=== PATIENT | female | born 1985 | race Caucasian/White ===

== ENCOUNTER 2017-09-16 18:18 | Outpatient (CLI) | payer OTHER, SELFPAY ==
[2017-09-16 18:20] VITALS: BP 148/88; PULSE 100; RESP 18; TEMP 37.1; O2SAT 100
[2017-09-16 20:35] LABS: RBC Urine None Seen (0-5/HPF)
[2017-09-16 21:02] LABS: Bacteria Urine Occasional (0-1); Mucus Urine 1+ (Negative); Squamous Epithelial Cell Urine 0-1 /HPF; WBC Urine 0-1/HPF (0-5/HPF)
[2017-09-16 21:18] VITALS: BP 121/79; PULSE 69; RESP 18; TEMP 36.9; O2SAT 100
== END 2017-09-16 22:48 | disposition left against medical advice (07) ==
LOC: LAB 10-23 09:22
PROVIDERS: Family Provider Family Medicine; PCP Family Medicine; Visit Provider Internal Medicine
DX: M54.5 Low back pain (principal)
CPT/HCPCS: 81003; 81015; 81025; 99281; 99282

== ENCOUNTER → 2018-01-07 11:13 | Outpatient (CLI) | payer SELFPAY ==
--- NOTE | 2018-01-07 | DI.CT.S_ITS ---
PROCEDURE: CT CHEST WO CON INDICATIONS: SHORTNESS OF BREATH TECHNIQUE: Noncontrast 5 mm thick sections acquired from the pulmonary apices to the posterior costophrenic angles. 7 mm thick coronal and sagittal MIP reformats were then acquired. For radiation dose reduction, the following was used: automated exposure control, adjustment of mA and/or kV according to patient size. COMPARISON: None. FINDINGS: Image quality: Excellent. Lungs and pleura: No acute air space opacities. No pleural effusions or pneumothorax. Central and peripheral airways are patent and normal in caliber. Mediastinum: Heart size is normal. No pericardial effusion. No mediastinal adenopathy by size criteria. Thoracic aorta and central pulmonary arteries are normal in size. Esophagus is normal in caliber. No hiatal hernia. Bones and chest wall: No suspicious bony lesions. No vertebral body compression fractures. No axillary or supraclavicular adenopathy by size criteria. Thyroid gland appears normal where well visualized. Abdomen: Visualized upper abdominal solid organs and bowel loops appear normal in the absence of contrast. IMPRESSION: No source of shortness of breath is found. No underlying pleural effusion or pneumonia is suspected. Dictated by: Dre Calle M.D. on 01/07/2018 at 12:57 Approved by: Dre Calle M.D. on 01/07/2018 at 12:58
== END ==
PROVIDERS: PCP Family Medicine; Visit Provider Family Medicine
DX: R06.02 Shortness of breath (principal)
CPT/HCPCS: 71250

== ENCOUNTER → 2018-08-26 15:28 | Outpatient (CLI) | payer SELFPAY ==
--- NOTE | 2018-08-26 | DI.US.S_ITS ---
PROCEDURE: US ABDOMEN COMPLETE INDICATIONS: ABDOMINAL PAIN TECHNIQUE: Real-time scanning was performed of the abdominal and retroperitoneal organs, with image documentation. COMPARISON: None. FINDINGS: Liver: The liver is normal in size and demonstrates mildly increased echogenicity when compared to the right kidney. The more normal areas of echogenicity are seen within the region of the gallbladder fossa, suggesting areas of fatty sparing. Gallbladder: No cholelithiasis or evidence of gallbladder wall inflammation. Biliary ducts: Intrahepatic bile ducts are non-dilated. Extrahepatic bile duct caliber measures 4 mm. Normal is 6-7 mm or less in diameter, or 10 mm or less post-cholecystectomy. Pancreas: Visualized portions of the pancreas are sonographically normal. Spleen: Spleen is normal in size and homogeneous in echotexture. Kidneys: Kidneys are normal in size and echotexture. Right kidney measures 13.8 cm long; left kidney measures 12.7 cm long. No hydronephrosis or shadowing nephrolithiasis. No solid masses. Aorta: Visualized aorta is normal in caliber at less than 3 cm. Iliacs: Proximal common iliac arteries are normal in caliber at less than 2.5 cm. IVC: Intrahepatic inferior vena cava is patent. Miscellaneous: No free abdominal fluid. IMPRESSION: 1. No cholelithiasis or evidence of acute cholecystitis. 2. Probable mild hepatic steatosis. 3. No hydronephrosis. Dictated by: Carlos A Urias M.D. on 08/26/2018 at 15:44 Approved by: Carlos A Urias M.D. on 08/26/2018 at 15:46
== END ==
LOC: US 15:30
PROVIDERS: PCP Family Medicine; Visit Provider Family Medicine
DX: R10.9 Unspecified abdominal pain (principal)
CPT/HCPCS: 76700

== ENCOUNTER → 2019-02-15 09:10 | Outpatient (CLI) | payer SELFPAY ==
--- NOTE | 2019-02-15 09:28 | DI.CT.S_ITS ---
PROCEDURE: CT CHEST WO CON INDICATIONS: chest pain TECHNIQUE: Noncontrast 5 mm thick sections acquired from the pulmonary apices to the posterior costophrenic angles. 1 mm lung window, 5 mm thick coronal and sagittal and 7 mm axial MIP reformats were then acquired. For radiation dose reduction, the following was used: automated exposure control, adjustment of mA and/or kV according to patient size. COMPARISON: [facility], CT, CT CHEST WO CON, 01/07/2018, 11:27. FINDINGS: Image quality: Excellent. Lungs and pleura: No acute air space opacities, emphysematous, or atelectatic changes. 2 mm nodule subpleural lateral lingula is present. No other suspicious nodules. No masses. No pleural effusions or pneumothorax. Central and peripheral airways are patent and normal in caliber. Mediastinum: Residual thymic tissue persists. No new anterior mediastinal masses. Heart size is normal. No pericardial effusion. No mediastinal adenopathy by size criteria. Thoracic aorta and central pulmonary arteries are normal in size. Esophagus is normal in caliber. No hiatal hernia. Bones and chest wall: No suspicious bony lesions. No vertebral body compression fractures. No axillary or supraclavicular adenopathy by size criteria. Thyroid gland is appears mildly enlarged. Abdomen: Visualized upper abdominal solid organs and bowel loops appear normal in the absence of contrast. IMPRESSION: 1. No acute cardiopulmonary process. 2. 2 mm lingular nodule is likely of no clinical significance in a patient of this age, likely post inflammatory or infectious. No further followup is necessary. 3. Mildly enlarged thyroid gland. Clinical, and laboratory correlation, along with thyroid ultrasound is recommended. Dictated by: Moni White M.D. on 02/15/2019 at 12:04 Approved by: Moni White M.D. on 02/15/2019 at 12:12
== END ==
LOC: CT 09:15
PROVIDERS: PCP Family Medicine; Visit Provider Family Medicine
DX: R07.9 Chest pain, unspecified (principal); R91.1 Solitary pulmonary nodule; E04.9 Nontoxic goiter, unspecified
CPT/HCPCS: 71250

== ENCOUNTER → 2019-02-19 12:39 | Outpatient (CLI) | payer SELFPAY ==
--- NOTE | 2019-02-19 | DI.US.S_ITS ---
ULTRASOUND OF LEFT BREAST: 02/19/2019 CLINICAL: Palpable left breast lump by physician. Focal left breast pain. Comparison is made to exams dated: 02/19/2019 mammogram, 02/15/2019 CT, 05/26/2017 ultrasound, and 05/26/2017 mammogram - [facility]. Ultrasound of the left breast was performed on the area of interest. Gilliland scale images of the real-time examination were reviewed. IMPRESSION: NEGATIVE There is no sonographic evidence of malignancy. There is no mammographic or sonographic abnormality seen in the left breast to correspond with the pain in the upper outer quadrant, however, clinical followup is recommended. There is no mammographic or sonographic abnormality seen in the left breast to correspond with the palpable abnormality in the lower outer quadrant, however, clinical followup is recommended. Return to annual mammogram screening schedule is recommended. This exam was interpreted at Station ID: [id number]. Electronically Signed By: Azul pardo/:02/19/2019 16:51:37 letter sent: Clinical Evaluation Ultrasound BI-RADS: 1 Negative
--- NOTE | 2019-02-19 | DI.MG.S_ITS ---
BILATERAL DIGITAL DIAGNOSTIC MAMMOGRAM 3D/2D: 02/19/2019 CLINICAL: Left breast lump and pain. Comparison is made to exams dated: 05/26/2017 ultrasound, 05/26/2017 ultrasound, 05/26/2017 mammogram, and 02/15/2019 [facility]. The tissue of both breasts is predominantly fatty. No significant masses, calcifications, or other findings are seen in either breast. IMPRESSION: INCOMPLETE: NEEDS ADDITIONAL IMAGING EVALUATION There is no mammographic abnormality seen in the left breast to correspond with the pain at 6 o'clock. There is no mammographic abnormality seen in the left breast to correspond with the palpable abnormality at 2 o'clock. A targeted ultrasound of the left breast is recommended and will be performed immediately following this exam. This exam was interpreted at Station ID: [id number]. NOTE: For mammograms, a report in lay terms will be sent to the patient. Approximately 15% of breast malignancies will not be visualized mammographically. In the management of a palpable breast mass, a negative mammogram must not discourage biopsy of a clinically suspicious lesion. Electronically Signed By: Azul Nunes M.D. lk/:02/19/2019 13:31:29 ACR BI-RADS Category 0: Incomplete [id number]
== END ==
PROVIDERS: PCP Family Medicine; Visit Provider Family Medicine
DX: R92.8 Other abnormal and inconclusive findings on diagnostic imaging of breast (principal); N63.23 Unspecified lump in the left breast, lower outer quadrant; N64.4 Mastodynia
CPT/HCPCS: 76642; 77066; G0279

== ENCOUNTER → 2019-11-30 10:55 | Outpatient (CLI) | payer SELFPAY ==
--- NOTE | 2019-11-30 11:03 | DI.US.S_ITS ---
PROCEDURE: US PERIPH VENOUS LOW EXTREM RT INDICATIONS: post. knee pain, calf pain/swelling, r/o dvt/Chapa's Cyst TECHNIQUE: Real-time imaging, as well as color and pulse Doppler interrogation, were performed of the lower extremity deep veins from the inguinal ligament to the popliteal fossa. COMPARISON: None. FINDINGS: The common femoral, femoral and popliteal veins are normally compressible, and free of intraluminal thrombus. Color and pulse Doppler demonstrate normal phasic intraluminal flow. There is normal augmentation response to distal compression maneuver. IMPRESSION: No DVT found. Dictated by: Dre Calle M.D. on 11/30/2019 at 12:07 Approved by: Dre Calle M.D. on 11/30/2019 at 12:07
== END ==
PROVIDERS: PCP Family Medicine; Referring Provider Family Medicine; Visit Provider Physician Assistant
DX: M79.661 Pain in right lower leg (principal); M25.561 Pain in right knee; M79.89 Other specified soft tissue disorders
CPT/HCPCS: 93971

== ENCOUNTER 2019-12-10 14:25 | Emergency (ER) | payer SELFPAY ==
[2019-12-10 14:35] VITALS: BP 191/87; PULSE 120; RESP 22; TEMP 36.9; O2SAT 98; BMI 47.5
[2019-12-10 15:00] VITALS: BP 164/87; PULSE 103; RESP 22; O2SAT 96
--- NOTE | 2019-12-10 15:01 | ED_ITS ---
HPI - Extremity Problem General Chief complaint: Extremity Problem,Nontraumatic Stated complaint: right knee, trouble walking, pain, past month Time Seen by Provider: 12/10/19 14:33 Source: patient Mode of arrival: Ambulatory Limitations: no limitations History of Present Illness HPI Narrative: 34-year-old female here for evaluation of right knee/leg pain. Patient states the symptoms started several weeks ago. She states that 1 day she woke up and felt like her knee was vibrating and after that it has become more more uncomfortable. Approximately 10 days ago she was seen in the walk-in clinic. Was evaluate for the symptoms. An ultrasound was ordered for concern for DVT. This was subsequently negative. She was told by the walk-in clinic that of her symptoms worsen that she needed to follow-up with her primary provider. She states that over the past couple days she felt like her symptoms have been worsening she contact her primary doctor in could get into the beginning of next week so she came to the emergency department. No fevers. No specific trauma. No changes in sensation to her foot. Describes the pain as behind and below and on top of her knee. No hip pain. No ankle pain. No prior injuries. She has been taking anti-inflammatories without much improvement. Related Data Home Medications Medication Instructions Recorded Confirmed CA PANTOTHENATE/FOLIC ACID/VIT 1 tab PO QDAY #0 01/07/11 11/14/18 (MULTIVITAMIN) Previous Rx's Medication Instructions Recorded prednisone 20 mg tablet 20 mg PO DAILY #14 tab 11/14/18 diclofenac sodium 1 % topical gel 4 gram TOP QID 14 Days #450 gram 11/30/19 cyclobenzaprine 10 mg PO TID PRN #12 tab 12/10/19 Allergies Allergy/AdvReac Type Severity Reaction Status Date / Time hydrocodone Allergy Verified 12/10/19 14:35 Review of Systems Constitutional Constitutional: Denies fatigue and Denies headache(s) ENT Ears, Nose, Mouth, and Throat: Denies headache(s) and Denies disequilibrium Cardiovascular Cardiovascular: Denies chest pain and Denies dyspnea Respiratory Respiratory: Denies dyspnea Gastrointestinal Gastrointestinal: Denies abdominal pain Genitourinary Genitourinary: Denies dysuria Genitourinary: Denies dysuria Musculoskeletal Musculoskeletal: Denies tingling Comments: Right knee pain Integumentary/Breasts Skin/Breast: Denies lesions and Denies rash Neurologic Neurologic: Denies headache(s), Denies tingling and Denies disequilibrium Endocrine Endocrine: Denies fatigue Patient History Medical History Posterior right knee pain (Acute) Right calf pain (Acute) Social History Smoking Status: Never smoker Smoking Status: Never smoker alcohol intake frequency: 3 or more drinks per day Substance Use Type: does not use Exam Initial Vital Signs Initial Vital Signs: Vital Signs Temperature 98.5 F 12/10/19 14:35 Pulse Rate 120 H 12/10/19 14:35 Respiratory Rate 22 12/10/19 14:35 Blood Pressure 191/87 H 12/10/19 14:35 Pulse Oximetry 98 12/10/19 14:35 Const General: cooperative and comfortable Limitations: mental status not altered HENMT Head: normal to inspection and normocephalic Resp Effort & Inspection: normal respiratory effort Cardio Pulses: dorsalis pedis present on the right Skin Lesions: no lesions Rashes: no rashes Neuro Sensory Exam: no sensory deficits noted Extrem Other: Right hip unremarkable, right ankle unremarkable, right foot unremarkable, patient has tenderness to palpation and fullness of the right tibialis anterior and also the lateral head of the gastrocnemius. Also has tenderness over the hamstring tendons. Psych Appearance: grossly normal and well kempt Course Vital Signs Vital signs: Vital Signs - 8 hr 12/10/19 14:35 Temperature 98.5 F Pulse Rate 120 H Respiratory Rate 22 Blood Pressure 191/87 H Pulse Oximetry 98 MDM - Extremity (Nontraumatic) MDM Narrative Medical decision making narrative: Patient had a DVT ultrasound which was reviewed and showed no DVT. Her skin shows no signs of cellulitis. I have low suspicion for fracture since the symptoms been going on for several weeks now and she has no specific trauma. She does have significant muscle fullness the tibialis anterior and the lateral head of the gastrocnemius and also very tender to palpation over both of the hamstring tendons posteriorly. Unsure why she is having this muscle fullness but it is fairly evident compared to the left side. She is neurovascularly intact distal. Consider compartment syndrome however she does not fit the physical exam for this. We did discuss focal massaging these areas. We did discuss light stretching. Was sent home with muscle relaxers. She is already on anti-inflammatories. Informed her of her symptoms do not improve that she should over the primary doctor about further evaluation to in clude a potential MRI. She expressed understanding and agreement. Patient was also tachycardic and hypertensive upon arrival. She is not having chest pain or shortness of breath. Her heart rate improved to the low 100s after my exam. Her blood pressure also improved. Low suspicion for cardiopulmonary pathology. Discharge Plan Departure Patient Disposition: Home Clinical Impression: Muscle spasm of right leg Instructions: DI for Muscle Spasm Activity Restrictions/Additional Instructions: Recommend that you do the focal massaging like we discussed. Also using heat and anti-inflammatories. Use the muscle relaxers as directed. If your symptoms do not improve with these conservative treatments I do recommend you talk with your primary doctor about further evaluation to include a potential MRI. Prescriptions: New cyclobenzaprine 10 mg tablet 10 mg PO TID PRN (Reason: muscle spasm) Qty: 12 RF: 0 No Action prednisone 20 mg tablet 20 mg PO DAILY Qty: 14 RF: 0 CA PANTOTHENATE/FOLIC ACID/VIT (MULTIVITAMIN) 1 tab PO QDAY Qty: 0 RF: 0 diclofenac sodium 1 % gel 4 gram TOP QID 14 Days Qty: 450 RF: 0 Referrals: Víctor Paul MD [Primary Care Provider] -
[2019-12-10 15:17] VITALS: BP 144/84; PULSE 90; RESP 18; O2SAT 98
== END 2019-12-10 15:18 | disposition home or self-care (01) ==
PROVIDERS: Emergency Provider Emergency Medicine; PCP Family Medicine
DX: M62.831 Muscle spasm of calf (principal)
CPT/HCPCS: 99281

== ENCOUNTER → 2020-02-26 13:12 | Outpatient (CLI) | payer OTHER, SELFPAY ==
[2020-02-26 15:25] LABS: COVID19 -Nasal RAPID POSITIVE (Negative)
== END ==
PROVIDERS: PCP Family Medicine; Visit Provider Physician Assistant
DX: U07.1 COVID-19 (principal)
CPT/HCPCS: 87635

== ENCOUNTER 2020-07-16 09:52 | Emergency (ER) | payer SELFPAY ==
[2020-07-16 10:05] VITALS: BP 136/63; PULSE 87; RESP 18; TEMP 36.8; O2SAT 99; BMI 46.3
--- NOTE | 2020-07-16 10:06 | ED.LOWEXIN ---
HPI - Extremity Injury (Lower) General Chief Complaint: Extremity Injury, Lower Stated Complaint: left foot pain Time Seen by Provider: 07/16/20 10:03 Source: patient Mode of arrival: Ambulatory Limitations: no limitations History of Present Illness HPI Narrative: 35-year-old female nonsmoker with noncontributory medical history presents with a chief complaint of some left foot pain has been gradually worsening since Friday. She has been extremely busy with work, running a local restaurant and states she may have tweaked it on when she stepped on a vacuum cord with her other foot and caused her to jump up. She now has significant pain when she moves her left foot and ankle, stating that the primary source of pain is in and around her heel. She denies any radiation up into her piper, knee or hip. She denies any history of the same. She denies any numbness, tingling or weakness. MD complaint: foot injury Onset (ago): day(s) Injury: Left: ankle and foot Place: home Severity: moderate Relieving factors: rest Exacerbating factors: weight bearing and movement Associated symptoms: able to partially bear weight Other symptoms: none Related Data Home Medications Medication Instructions Recorded Confirmed CA PANTOTHENATE/FOLIC ACID/VIT 1 tab PO QDAY #0 01/07/11 11/14/18 (MULTIVITAMIN) Previous Rx's Medication Instructions Recorded prednisone 20 mg tablet 20 mg PO DAILY #14 tab 11/14/18 cyclobenzaprine 10 mg PO TID PRN #12 tab 12/10/19 ketorolac 10 mg PO Q6H PRN #20 tab 07/16/20 Allergies Allergy/AdvReac Type Severity Reaction Status Date / Time hydrocodone Allergy Verified 12/10/19 14:35 Review of Systems Constitutional Constitutional: Denies chills and Denies fever(s) Cardiovascular Cardiovascular: Denies chest pain and Denies dyspnea Respiratory Respiratory: Denies dyspnea Musculoskeletal Musculoskeletal: Reports abnormal gait and Reports arthralgias Neurologic Neurologic: Reports abnormal gait Patient History Medical History (Updated 07/16/20 @ 10:54 by Bret Aburto DO) Posterior right knee pain Right calf pain Social History Smoking Status: Never smoker Smoking Status: Never smoker alcohol intake frequency: 3 or more drinks per day Substance Use Type: does not use Exam Narrative Exam Narrative: GEN: AOx3 and in mild distress EYES: Pupils are equal, round, and reactive to light and accommodation. Extraoccular muscles are intact bilaterally. There is no subconjunctival hemorrhage or exudate. CHEST: Lungs are clear to auscultation bilaterally and free of wheezes, rales, or rhonchi. Heart rate is regular rhythm, there are no murmurs, clicks, rubs, or gallops. There is no chest wall tenderness. ABD: Abdomen is soft and nontender. There is no guarding or rebound. Bowel sounds are normal in all 4 quadrants. There is no mass or organomegaly. EXT: No obvious deformity of left foot and ankle, no swelling or erythema, no tenderness on bony prominences. Good color, cap refill and sensation intact. Patient does have provocation of pain with active range of motion of toes and dorsiflexion of the ankle, pain settles in the posterior foot. There is no pain on palpation of Achilles, calf squeeze results in plantar flexion SKIN: Warm, pink, and dry. No erythema or rash Initial Vital Signs Initial Vital Signs: Vital Signs Temperature 98.2 F 07/16/20 10:05 Pulse Rate 87 07/16/20 10:05 Respiratory Rate 18 07/16/20 10:05 Blood Pressure 136/63 07/16/20 10:05 Pulse Oximetry 99 07/16/20 10:05 Course Orders Ordered: ED Orders 07/16/20 10:09 XR foot LT min 3V Stat Vital Signs Vital signs: Vital Signs - 8 hr 07/16/20 10:05 Temperature 98.2 F Pulse Rate 87 Respiratory Rate 18 Blood Pressure 136/63 Pulse Oximetry 99 MDM - Extremity Injury (Lower) Imaging Data Extremity x-ray #1: Radiologist's Impression: [address] [id number] ReportSigned Patient: Katherine Medellin [facility]#: [id number]: 1985Acct:[id number]/Sex: 35 / FDate of Service: 07/16/20Loc: EDAccession Number: [id number] Procedure: XR foot LT min 3V Ordering Provider: Bret Aburto D.O. PROCEDURE: XR FOOT LT MIN 3V INDICATIONS: foot pain, no obvious injury TECHNIQUE: 3 views of the foot were acquired. COMPARISON: [facility], , FOOT 2V LEFT, 05/29/2016, 12:15. FINDINGS: Bones: No fractures or dislocations. No suspicious bony lesions. Soft tissues: No tibiotalar joint effusion. Achilles tendon appears normal. Large plantar fascial insertional enthesophyte at the calcaneus. IMPRESSION: No acute osseous abnormality. Large plantar calcaneal enthesophyte. Dictated by: Stuart Daily D.O. on 07/16/2020 at 9:33 MDM Narrative Medical decision making narrative: Patient with ongoing foot and ankle pain since a possible injury on or Friday. No obvious deformity, is closed, isolated and neurovascularly intact. Achilles injury considered but thought unlikely as there is no pain at the distribution of the Achilles and she has plantar flexion with calf squeeze. Bony injury unlikely given exam, lack of reproducible pain on palpation and normal x-ray. My suspicion is of an underlying ligamentous or other soft tissue injury as evidence by her increased pain with active range of motion. Patient is splinted, return precautions given and questions answered to her apparent satisfaction Discharge Plan Departure Patient Disposition: Home Clinical Impression: Left foot pain Instructions: DI for Foot Pain Activity Restrictions/Additional Instructions: *You have been diagnosed with [left foot pain, no evidence of fracture or dislocation x-ray, low suspicion of Achilles tendon injury based on physical exam.] *What to do: *Please continue to take your regular medications as directed. [ x] New medication prescriptions sent to your pharmacy: [[facility] in [place] ] [ ] New medication written as a paper prescription [ ] No new medications given *Please follow up with your primary care provider in 2-3 days, call for an appointment. Let them know you were seen in the Emergency Department and that we ask that you be seen in follow up. We will electronically transmit a record of today's note if your PCP is in our system *If you do not have a primary care provider please contact the [facility] Resource line at [phone]. They will ask some questions about your medical history and help get you set up with a doctor in the community. *Return to Emergency Department if you should have any new, worsening or concerning symptoms, such as [fever greater than 101 F, shaking chills, worsening pain, persistent vomiting or other bothersome symptoms] Prescriptions: New ketorolac 10 mg tablet 10 mg PO Q6H PRN (Reason: pain) Qty: 20 RF: 0 No Action prednisone 20 mg tablet 20 mg PO DAILY Qty: 14 RF: 0 CA PANTOTHENATE/FOLIC ACID/VIT (MULTIVITAMIN) 1 tab PO QDAY Qty: 0 RF: 0 cyclobenzaprine 10 mg tablet 10 mg PO TID PRN (Reason: muscle spasm) Qty: 12 RF: 0 Referrals: Víctor Paul MD [Primary Care Provider] -
--- NOTE | 2020-07-16 10:09 | DI.RAD.S_ITS ---
PROCEDURE: XR FOOT LT MIN 3V INDICATIONS: foot pain, no obvious injury TECHNIQUE: 3 views of the foot were acquired. COMPARISON: [facility], , FOOT 2V LEFT, 05/29/2016, 12:15. FINDINGS: Bones: No fractures or dislocations. No suspicious bony lesions. Soft tissues: No tibiotalar joint effusion. Achilles tendon appears normal. Large plantar fascial insertional enthesophyte at the calcaneus. IMPRESSION: No acute osseous abnormality. Large plantar calcaneal enthesophyte. Dictated by: Stuart Daily D.O. on 07/16/2020 at 9:33 Approved by: Stuart Daily D.O. on 07/16/2020 at 9:54
== END 2020-07-16 11:08 | disposition home or self-care (01) ==
PROVIDERS: Emergency Provider Emergency Medicine; PCP Family Medicine
DX: M79.672 Pain in left foot (principal)
CPT/HCPCS: 73630; 99283

== ENCOUNTER → 2020-10-24 11:09 | Outpatient (CLI) | payer SELFPAY ==
--- NOTE | 2020-10-24 | DI.RAD.S_ITS ---
PROCEDURE: XR WRIST RT MIN 3V INDICATIONS: RIGHT WRIST PAIN TECHNIQUE: Four views of the wrist were acquired. COMPARISON: None. FINDINGS: Bones: No fractures or dislocations. Moderate osteoarthritic changes at the 1st CMC and triscaphe joints. No suspicious bony lesions. Scaphoid view: Intact scaphoid. Normal scapholunate interval. Soft tissues: No suspicious soft tissue calcifications. IMPRESSION: No acute finding. 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 Dictated by: Philip Morales M.D. on 10/24/2020 at 14:26 Approved by: Philip Morales M.D. on 10/24/2020 at 14:27
== END ==
PROVIDERS: PCP Family Medicine; Referring Provider Physician Assistant; Visit Provider Physician Assistant
DX: M25.531 Pain in right wrist (principal); M18.11 Unilateral primary osteoarthritis of first carpometacarpal joint, right hand; M19.031 Primary osteoarthritis, right wrist
CPT/HCPCS: 73110

== ENCOUNTER 2020-11-27 14:31 | Emergency (ER) | payer SELFPAY ==
[2020-11-27] VITALS (7 sets, daily range): BP systolic 139–160; BP diastolic 66–86; PULSE 95–122; RESP 18; TEMP 37.4; O2SAT 97–100
--- NOTE | 2020-11-27 14:50 | DI.CT.S_ITS ---
PROCEDURE: CT ABDOMEN PELVIS W CON INDICATIONS: LLQ pain TECHNIQUE: After the administration of intravenous contrast, axial sections acquired from the lung bases to the pubic symphysis. Coronal and sagittal reformats were performed. For radiation dose reduction, the following was used: automated exposure control, adjustment of mA and/or kV according to patient size. COMPARISON: None. FINDINGS: Image quality: Excellent. Lung bases: Unremarkable. Heart: No significant findings. ABDOMEN: Liver: Mild, diffuse fatty infiltration of the liver. Gallbladder: Unremarkable. Biliary ducts: Unremarkable. Pancreas: Unremarkable. Spleen: Unremarkable. Adrenal Glands: Unremarkable. Kidneys and Ureters: Unremarkable. Stomach and Bowel: Stomach, small bowel loops, and colon are unremarkable. The appendix is normal. Peritoneum: No abnormal intraperitoneal fluid. No free air. Ventral Wall: No hernias. Abdominal Nodes: No retroperitoneal or mesenteric adenopathy by size criteria. Vessels: Aorta and inferior vena cava are normal in size. PELVIS: Pelvic Organs: Unremarkable. Bladder: Unremarkable. Pelvic Nodes: No enlarged lymph nodes. Miscellaneous: No hernias are seen. Bones: Spine degenerative disc disease and facet arthropathy. Grade 1 L5-S1 isthmic spondylolisthesis. IMPRESSION: 1. No acute disease process. 2. Appendix is normal. 3. No free fluid or free air. 4. No dilated loops of bowel. Dictated by: Geovanna Apodaca MD, PhD on 11/27/2020 at 15:54 Approved by: Geovanna Apodaca MD, PhD on 11/27/2020 at 15:58
[2020-11-27 14:52] LABS: Appearance Urine UA CLEAR; Bilirubin Urine UA NEGATIVE (NEGATIVE); Color Urine UA YELLOW; Glucose Urine UA NEGATIVE (Negative); Ketones Urine UA NEGATIVE (NEGATIVE); Leukocyte Esterase Urine UA NEGATIVE (NEGATIVE); Nitrite Urine UA NEGATIVE (Negative); Occult Blood Urine UA NEGATIVE (Negative); Protein Urine UA NEGATIVE (Negative); Specific Gravity Urine UA 1.025 (1.000-1.035); Urobilinogen Urine UA 0.2 E.U./dL (0.2)
--- NOTE | 2020-11-27 14:52 | ED_ITS ---
HPI - Abdominal Pain <Stevie Haynes PA-C - Last Filed: 11/27/20 17:01> General Chief Complaint: Abdominal Pain Stated Complaint: Bad abd pain. Thinks ovarian cyst Time Seen by Provider: 11/27/20 14:36 Source: patient Mode of arrival: Ambulatory History of Present Illness HPI narrative: 35-year-old female with no reported past medical history presents to the ED with 1 day of left lower quadrant pain. Patient states that the pain started suddenly 2 hours prior to arrival, 8/10 during the worst pain. Pain is aggravated by movement, sitting up. Patient is on Depo-Provera, LMP 6 months ago. Patient denies history ectopic , ovarian cysts. Patient denies fever, chills, chest pain, shortness of breath, cough, nausea, vomiting, dysuria, flank pain, lightheadedness, dizziness, syncope. Patient denies h istory of abdominal surgeries, kidney stones. Related Data Home Medications Medication Instructions Recorded Confirmed CA PANTOTHENATE/FOLIC ACID/VIT 1 tab PO QDAY #0 01/07/11 10/24/20 (MULTIVITAMIN) Previous Rx's Medication Instructions Recorded prednisone 20 mg tablet 20 mg PO DAILY #14 tab 11/14/18 cyclobenzaprine 10 mg tablet 10 mg PO TID PRN #12 tab 12/10/19 ketorolac 10 mg tablet 10 mg PO Q6H PRN #20 tab 07/16/20 Allergies Allergy/AdvReac Type Severity Reaction Status Date / Time hydrocodone Allergy Verified 11/27/20 14:43 Review of Systems <Stevie Haynes PA-C - Last Filed: 11/27/20 17:01> Constitutional Constitutional: Denies chills, Denies fatigue, Denies fever(s), Denies frequent falls, Denies lethargy and Denies weakness Eyes Eyes: Denies change in vision, Denies eye discharge, Denies irritation and Denies loss of vision ENT Ears, Nose, Mouth, and Throat: Denies change in voice, Denies dizziness, Denies neck pain, Denies sore throat and Denies throat swelling Cardiovascular Cardiovascular: Denies chest pain, Denies irregular heart rhythm, Denies lightheadedness, Denies palpitations, Denies dyspnea, Denies dyspnea on exertion and Denies orthopnea Respiratory Respiratory: Denies cough, Denies dyspnea, Denies dyspnea on exertion and Denies wheezing Gastrointestinal Gastrointestinal: Reports abdominal pain, Denies change in bowel habits, Denies diarrhea, Denies nausea and Denies vomiting Musculoskeletal Musculoskeletal: Denies neck pain and Denies numbness Integumentary/Breasts Skin/Breast: Denies pruritus, Denies erythema, Denies rash and Denies wounds Neurologic Neurologic: Denies behavioral changes, Denies confusion, Denies dizziness, Denies frequent falls, Denies loss of vision, Denies numbness and Denies weakness Psychiatric Psychiatric: Denies anxiety, Denies behavioral changes, Denies confusion, Denies depression, Denies homicidal ideation and Denies suicidal ideation Endocrine Endocrine: Denies fatigue, Denies flushing and Denies palpitations Hematologic/Lymphatic Hematologic/Lymphatic: Denies easy bruising Allergic/Immunologic Allergic/Immunologic: Denies urticaria, Denies throat swelling and Denies wheezing Patient History <Stevie Haynes PA-C - Last Filed: 11/27/20 17:01> Medical History (Updated 11/27/20 @ 16:40 by Stevie Haynes PA-C) Posterior right knee pain Right calf pain Social History Smoking Status: Never smoker Smoking Status: Never smoker alcohol intake frequency: 3 or more drinks per day Substance Use Type: does not use Exam <Stevie Haynes PA-C - Last Filed: 11/27/20 17:01> Initial Vital Signs Initial Vital Signs: Vital Signs Pulse Rate 122 H 11/27/20 14:39 Pulse Oximetry 99 11/27/20 14:39 Const General: cooperative HENHI Head: normocephalic and atraumatic Ears: external ears normal and TM's normal bilaterally Nose: external nose normal and No nasal discharge Face and sinus: sinuses nontender, face symmetric, no sinus tenderness and No dry mucous membranes Mouth: oral mucosae normal and moist mucous membranes Teeth and gingiva: dentition normal Throat: tonsils normal and uvula midline Eyes General: appearance normal, both eyes and all related structures Eyelids: eyelids normal Conjunctivae: conjunctivae normal Sclera: sclerae normal Pupils: PERRL EOM: EOM intact bilaterally Neck Neck: normal visual inspection, trachea midline, No lymphadenopathy, No midline deformity and No JVD Lymphatic: No lymphedema Chest Chest: normal inspection of the chest Resp Effort & Inspection: normal respiratory effort, able to speak in complete sentences, no respiratory distress and no use of accessory muscles Auscultation: clear to auscultation bilaterally, no rales, no rhonchi and no wheezes Cardio Rate: regular rate Rhythm: regular rhythm Heart Sounds: no click, no gallops, no murmurs and no rubs Pulses: normal peripheral pulses GI Inspection: non-distended Palpation: soft, no hepatosplenomegaly, No guarding, No pulsatile mass and No tender Auscultation: normal bowel sounds Other: Abdomen is soft, nondistended. Tenderness to palpation on left lower quadrant. No guarding, rebound. No CVA tenderness. Back/Spine/Pelvis Back: No CVA tenderness Cervical Spine: cervical ROM normal and No pain with cervical ROM Thoracic/Lumbar Spine: thoracic and lumbar spine normal to inspection Skin General: no rashes or lesions noted, No jaundice and No petechiae Neuro General: patient alert, patient oriented x3, gait normal and no focal motor deficits Speech: speech normal Extrem General: full ROM, no clubbing, cyanosis or edema, no pedal edema and no calf tenderness Psych Appearance: well kempt Mental Status: mental status grossly normal Attitude: cooperative Thought Content: normal and suicidality Judgment: judgment good <Bret Aburto DO - Last Filed: 11/28/20 06:58> Initial Vital Signs Initial Vital Signs: Vital Signs Pulse Rate 122 H 11/27/20 14:39 Pulse Oximetry 99 11/27/20 14:39 Course <Stevie Haynes PA-C - Last Filed: 11/27/20 17:01> Course Course Narrative: Patient's pain improved with ketorolac. CT, ultrasound, labs negative for acute findings. Pain likely caused by musculoskeletal etiology. Will discharge patient with ED return precautions. Orders Ordered: Discontinued Medications Ketorolac Tromethamine (Ketorolac 30 Mg/Ml Vial) 15 mg IV NOW ONE Stop: 11/27/20 14:51 Last Admin: 11/27/20 15:13 Dose: 15 mg Documented by: MOHSEN Vital Signs Vital signs: Vital Signs - 8 hr 11/27/20 14:39 11/27/20 14:40 11/27/20 14:41 Temperature 99.3 F Pulse Rate 122 H 109 H 121 H Respiratory Rate 18 Blood Pressure 160/86 H 160/86 H Pulse Oximetry 99 98 99 11/27/20 15:00 11/27/20 15:30 Temperature Pulse Rate 104 H 97 H Respiratory Rate Blood Pressure 154/71 H 147/70 H Pulse Oximetry 100 99 <Bret Aburto DO - Last Filed: 11/28/20 06:58> Orders Ordered: Discontinued Medications Ketorolac Tromethamine (Ketorolac 30 Mg/Ml Vial) 15 mg IV NOW ONE Stop: 11/27/20 14:51 Last Admin: 11/27/20 15:13 Dose: 15 mg Documented by: MOHSEN Vital Signs Vital signs: Vital Signs - 8 hr 11/27/20 14:39 11/27/20 14:40 11/27/20 14:41 Temperature 99.3 F Pulse Rate 122 H 109 H 121 H Respiratory Rate 18 Blood Pressure 160/86 H 160/86 H Pulse Oximetry 99 98 99 11/27/20 15:00 11/27/20 15:30 Temperature Pulse Rate 104 H 97 H Respiratory Rate Blood Pressure 154/71 H 147/70 H Pulse Oximetry 100 99 MDM - Abdominal Pain <Stevie Haynes PA-C - Last Filed: 11/27/20 17:01> Lab Data Lab results narrative: Labs WNL Result diagrams: 11/27/20 14:35 11/27/20 14:35 Labs: Lab Results 11/27/20 11/27/20 11/27/20 Range/Units 14:35 14:35 14:35 WBC 10.8 (4.5-11.0) X10^3/uL RBC 4.86 (4.0-5.2) X10^6/uL Hgb 14.6 (12.0-16.0) g/dL Hct 43.8 (36-46) % MCV 90.2 (80-100) fL MCH 30.0 (26-34) PG MCHC 33.3 (30-36) % RDW 13.8 (11.6-14.8) % Plt Count 260 (150-400) X10^3/uL Neut % (Auto) 64.7 (50-75) % Lymph % (Auto) 25.2 (25-40) % Price % (Auto) 8.2 (3-14) % Eos % (Auto) 1.0 L (2-4) % Baso % (Auto) 0.9 (0-2) % Neut # (Auto) 7000 (6575-0401) /uL Lymph # (Auto) 2700 (7784-5095) /uL Price # (Auto) 900 (0-900) /uL Eos # (Auto) 100 (0-450) /uL Baso # (Auto) 100 (0-100) /uL Sodium (137-145) mmol/L Potassium (3.4-5.1) mmol/L Chloride (98-107) mmol/L Carbon Dioxide (22-32) mmol/L BUN (7-17) mg/dL Creatinine (0.52-1.04) mg/dL Estimated GFR (>60) mL/min BUN/Creatinine Ratio (6-22) Glucose (70-100) mg/dL Lactate (0.7-2.1) mmol/L Calcium (8.4-10.2) mg/dL Total Bilirubin (0.2-1.3) mg/dL AST (14-36) IU/L ALT (<35) IU/L Alkaline Phosphatase (38-126) U/L Total Protein (6.3-8.2) g/dL Albumin (3.5-5.0) g/dL Globulin (1.7-4.1) g/dL Albumin/Globulin Ratio (1.0-2.8) Lipase (23-300) U/L Urine Color Yellow Urine Appearance Clear Urine pH 5.0 (4.5-8.0) Ur Specific [place] 1.025 (1.000-1.035) Urine Protein Negative (Negative) Urine Glucose (UA) Negative (Negative) g/dL Urine Ketones Negative (NEGATIVE) Urine Occult Blood Negative (Negative) Urine Nitrate Negative (Negative) Urine Bilirubin Negative (NEGATIVE) Urine Urobilinogen 0.2 (0.2) E.U./dL Ur Leukocyte Esterase Negative (NEGATIVE) Urine RBC None seen (0-5/HPF) Urine WBC None seen (0-5/HPF) Urine Bacteria None seen (None) Ur Culture Indicated? Cult not indicated Urine Test Negative (Negative) 11/27/20 11/27/20 Range/Units 14:35 14:35 WBC (4.5-11.0) X10^3/uL RBC (4.0-5.2) X10^6/uL Hgb (12.0-16.0) g/dL Hct (36-46) % MCV (80-100) fL MCH (26-34) PG MCHC (30-36) % RDW (11.6-14.8) % Plt Count (150-400) X10^3/uL Neut % (Auto) (50-75) % Lymph % (Auto) (25-40) % Price % (Auto) (3-14) % Eos % (Auto) (2-4) % Baso % (Auto) (0-2) % Neut # (Auto) (4151-3053) /uL Lymph # (Auto) (5388-3557) /uL Price # (Auto) (0-900) /uL Eos # (Auto) (0-450) /uL Baso # (Auto) (0-100) /uL Sodium 141 (137-145) mmol/L Potassium 3.8 (3.4-5.1) mmol/L Chloride 107 (98-107) mmol/L Carbon Dioxide 26 (22-32) mmol/L BUN 11 (7-17) mg/dL Creatinine 0.49 L (0.52-1.04) mg/dL Estimated GFR > 60.0 (>60) mL/min BUN/Creatinine Ratio 22.4 H (6-22) Glucose 87 (70-100) mg/dL Lactate 1.2 (0.7-2.1) mmol/L Calcium 9.1 (8.4-10.2) mg/dL Total Bilirubin 0.6 (0.2-1.3) mg/dL AST 29 (14-36) IU/L ALT 31 (<35) IU/L Alkaline Phosphatase 92 (38-126) U/L Total Protein 8.0 (6.3-8.2) g/dL Albumin 4.6 (3.5-5.0) g/dL Globulin 3.4 (1.7-4.1) g/dL Albumin/Globulin Ratio 1.4 (1.0-2.8) Lipase 58 (23-300) U/L Urine Color Urine Appearance Urine pH (4.5-8.0) Ur Specific [place] (1.000-1.035) Urine Protein (Negative) Urine Glucose (UA) (Negative) g/dL Urine Ketones (NEGATIVE) Urine Occult Blood (Negative) Urine Nitrate (Negative) Urine Bilirubin (NEGATIVE) Urine Urobilinogen (0.2) E.U./dL Ur Leukocyte Esterase (NEGATIVE) Urine RBC (0-5/HPF) Urine WBC (0-5/HPF) Urine Bacteria (None) Ur Culture Indicated? Urine Test (Negative) Imaging Data US - CARTRIDGE LOADER: Radiologist's Impression: PROCEDURE:? US PELVIC COMPLETE ? INDICATIONS:? LEFT PELVIC PAIN ? TECHNIQUE:? Real-time scanning was performed of the pelvic organs, with image documentation.? Additional endovaginal scanning was necessary due to incomplete visualization of the adnexal and endometrial structures by transabdominal scanning.? ? COMPARISON:? None. ? FINDINGS:? ?? Uterus:? Uterus is normal in size at 6.2 x 3.3 x 4.4 cm.? The endometrium measures 5.7 mm in combined thickness.? ? Ovaries:? Right ovary measures 1.8 x 1.6 x 2.8 cm. Left ovary measures 2.7 x 1.9 x 1.5 cm. ? Other: ? No pathologic free abdominal or pelvic fluid. ? IMPRESSION:? Unremarkable exam. ? Dictated by: Delmy Robles M.D. on 11/27/2020 at 16:07 ? ? Approved by: Delmy Robles M.D. on 11/27/2020 at 16:07 ? CT scan - abdomen/pelvis: Radiologist's Impression: PROCEDURE:? CT ABDOMEN PELVIS W CON ? INDICATIONS:? LLQ pain ? TECHNIQUE:? After the administration of intravenous contrast, axial sections acquired from the lung bases to the pubic symphysis.? Coronal and sagittal reformats were performed.? For radiation dose reduction, the following was used:? automated exposure control, adjustment of mA and/or kV according to patient size.? ? COMPARISON:? None. ? FINDINGS:? Image quality:? Excellent.? ? Lung bases:? Unremarkable. Heart:? No significant findings. ? ABDOMEN: Liver:? Mild, diffuse fatty infiltration of the liver. Gallbladder:? Unremarkable.? ? Biliary ducts:? Unremarkable.? ? Pancreas:? Unremarkable.? ? Spleen:? Unremarkable.? ? Adrenal Glands:? Unremarkable.? ? Kidneys and Ureters:? Unremarkable.? ? ? Stomach and Bowel:? Stomach, small bowel loops, and colon are unremarkable.? The appendix is normal. Peritoneum:? No abnormal intraperitoneal fluid.? No free air.? ? Ventral Wall: ? No hernias.? Abdominal Nodes:? No retroperitoneal or mesenteric adenopathy by size criteria.? Vessels:? Aorta and inferior vena cava are normal in size.? ? PELVIS: Pelvic Organs:? Unremarkable.? ? Bladder:? Unremarkable.? ? Pelvic Nodes: No enlarged lymph nodes.? Miscellaneous: No hernias are seen. ? ? ? Bones:? Spine degenerative disc disease and facet arthropathy.? Grade 1 L5-S1 isthmic spondylolisthesis. ? ? IMPRESSION:? ? 1. No acute disease process. ? 2. Appendix is normal. ? 3. No free fluid or free air. ? 4. No dilated loops of bowel. ? ? Dictated by: Geovanna Apodaca MD, PhD on 11/27/2020 at 15:54 ? ? Approved by: Geovanna Apodaca MD, PhD on 11/27/2020 at 15:58 ? MDM Narrative Medical decision making narrative: 35-year-old female with no reported past medical history presents to the ED with 1 day of left lower quadrant pain. Concern for ovarian torsion versus ectopic versus ruptured ovarian cyst versus diverticulitis versus kidney stones versus UTI vs MSK pain. Will order labs, UA, hCG, lactate, pelvic ultrasound, CT abdomen pelvis. Will give Ketoralac for pain. Will reassess. <Bret Aburto, DO - Last Filed: 11/28/20 06:58> Lab Data Labs: Lab Results 11/27/20 11/27/20 11/27/20 Range/Units 14:35 14:35 14:35 WBC 10.8 (4.5-11.0) X10^3/uL RBC 4.86 (4.0-5.2) X10^6/uL Hgb 14.6 (12.0-16.0) g/dL Hct 43.8 (36-46) % MCV 90.2 (80-100) fL MCH 30.0 (26-34) PG MCHC 33.3 (30-36) % RDW 13.8 (11.6-14.8) % Plt Count 260 (150-400) X10^3/uL Neut % (Auto) 64.7 (50-75) % Lymph % (Auto) 25.2 (25-40) % Price % (Auto) 8.2 (3-14) % Eos % (Auto) 1.0 L (2-4) % Baso % (Auto) 0.9 (0-2) % Neut # (Auto) 7000 (4502-7830) /uL Lymph # (Auto) 2700 (2422-2690) /uL Price # (Auto) 900 (0-900) /uL Eos # (Auto) 100 (0-450) /uL Baso # (Auto) 100 (0-100) /uL Sodium (137-145) mmol/L Potassium (3.4-5.1) mmol/L Chloride (98-107) mmol/L Carbon Dioxide (22-32) mmol/L BUN (7-17) mg/dL Creatinine (0.52-1.04) mg/dL Estimated GFR (>60) mL/min BUN/Creatinine Ratio (6-22) Glucose (70-100) mg/dL Lactate (0.7-2.1) mmol/L Calcium (8.4-10.2) mg/dL Total Bilirubin (0.2-1.3) mg/dL AST (14-36) IU/L ALT (<35) IU/L Alkaline Phosphatase (38-126) U/L Total Protein (6.3-8.2) g/dL Albumin (3.5-5.0) g/dL Globulin (1.7-4.1) g/dL Albumin/Globulin Ratio (1.0-2.8) Lipase (23-300) U/L Urine Color Yellow Urine Appearance Clear Urine pH 5.0 (4.5-8.0) Ur Specific [place] 1.025 (1.000-1.035) Urine Protein Negative (Negative) Urine Glucose (UA) Negative (Negative) g/dL Urine Ketones Negative (NEGATIVE) Urine Occult Blood Negative (Negative) Urine Nitrate Negative (Negative) Urine Bilirubin Negative (NEGATIVE) Urine Urobilinogen 0.2 (0.2) E.U./dL Ur Leukocyte Esterase Negative (NEGATIVE) Urine RBC None seen (0-5/HPF) Urine WBC None seen (0-5/HPF) Urine Bacteria None seen (None) Ur Culture Indicated? Cult not indicated Urine Test Negative (Negative) 11/27/20 11/27/20 Range/Units 14:35 14:35 WBC (4.5-11.0) X10^3/uL RBC (4.0-5.2) X10^6/uL Hgb (12.0-16.0) g/dL Hct (36-46) % MCV (80-100) fL MCH (26-34) PG MCHC (30-36) % RDW (11.6-14.8) % Plt Count (150-400) X10^3/uL Neut % (Auto) (50-75) % Lymph % (Auto) (25-40) % Price % (Auto) (3-14) % Eos % (Auto) (2-4) % Baso % (Auto) (0-2) % Neut # (Auto) (9899-7310) /uL Lymph # (Auto) (5648-9290) /uL Price # (Auto) (0-900) /uL Eos # (Auto) (0-450) /uL Baso # (Auto) (0-100) /uL Sodium 141 (137-145) mmol/L Potassium 3.8 (3.4-5.1) mmol/L Chloride 107 (98-107) mmol/L Carbon Dioxide 26 (22-32) mmol/L BUN 11 (7-17) mg/dL Creatinine 0.49 L (0.52-1.04) mg/dL Estimated GFR > 60.0 (>60) mL/min BUN/Creatinine Ratio 22.4 H (6-22) Glucose 87 (70-100) mg/dL Lactate 1.2 (0.7-2.1) mmol/L Calcium 9.1 (8.4-10.2) mg/dL Total Bilirubin 0.6 (0.2-1.3) mg/dL AST 29 (14-36) IU/L ALT 31 (<35) IU/L Alkaline Phosphatase 92 (38-126) U/L Total Protein 8.0 (6.3-8.2) g/dL Albumin 4.6 (3.5-5.0) g/dL Globulin 3.4 (1.7-4.1) g/dL Albumin/Globulin Ratio 1.4 (1.0-2.8) Lipase 58 (23-300) U/L Urine Color Urine Appearance Urine pH (4.5-8.0) Ur Specific [place] (1.000-1.035) Urine Protein (Negative) Urine Glucose (UA) (Negative) g/dL Urine Ketones (NEGATIVE) Urine Occult Blood (Negative) Urine Nitrate (Negative) Urine Bilirubin (NEGATIVE) Urine Urobilinogen (0.2) E.U./dL Ur Leukocyte Esterase (NEGATIVE) Urine RBC (0-5/HPF) Urine WBC (0-5/HPF) Urine Bacteria (None) Ur Culture Indicated? Urine Test (Negative) Discharge Plan Departure Patient Disposition: Home Clinical Impression: Abdominal pain Qualifiers: Abdominal location: left lower quadrant Qualified Code(s): R10.32 - Left lower quadrant pain Instructions: DI for Abdominal Pain-Adult, DI for Abdominal Muscle Strain Activity Restrictions/Additional Instructions: You were evaluated for abdominal pain in the ED today. Your labs, test, CT abdomen pelvis, pelvic ultrasound were all negative. Your abdominal pain is most likely due to a musculoskeletal sprain/strain. You may take ibuprofen for the pain. Please follow-up with your PCP. Return to the ED if you experience worsening abdominal pain, fever, chills. Prescriptions: No Action prednisone 20 mg tablet 20 mg PO DAILY Qty: 14 RF: 0 CA PANTOTHENATE/FOLIC ACID/VIT (MULTIVITAMIN) 1 tab PO QDAY Qty: 0 RF: 0 cyclobenzaprine 10 mg tablet 10 mg PO TID PRN (Reason: muscle spasm) Qty: 12 RF: 0 ketorolac 10 mg tablet 10 mg PO Q6H PRN (Reason: pain) Qty: 20 RF: 0 Referrals: Víctor Paul MD [Primary Care Provider] - <Bret Aburto DO - Last Filed: 11/28/20 06:58> [facility] ED Attending [facility] lauraature Attestation: I was immediately available in the department for consultation. This documentation has been reviewed and I agree with assessment and plan. Supervised by Bret Aburto DO
[2020-11-27 14:57] LABS: Add Manual Diff / Slide Review NO; Basophils Absolute Auto 100 /uL (0-100); Basophils Percent Auto 0.9 % (0-2); Eosinophils Absolute Auto 100 /uL (0-450); Hematocrit 43.8 % (36-46); Hemoglobin 14.6 g/dL (12.0-16.0); Lymphocytes Absolute Auto 2700 /uL (1100-4500); Lymphocytes Percent Auto 25.2 % (25-40); Mean Corpuscular HGB Conc 33.3 % (30-36); Mean Corpuscular Volume 90.2 fL (80-100); Monocytes Absolute Auto 900 /uL (0-900); Monocytes Percent Auto 8.2 % (3-14); Neutrophils Absolute Auto 7000 /uL (1500-7000); Neutrophils Percent Auto 64.7 % (50-75); Platelet Count 260 X10^3/uL (150-400); Red Blood Cell Count 4.86 X10^6/uL (4.0-5.2); Red Cell Distribution Width 13.8 % (11.6-14.8); White Blood Cell Count 10.8 X10^3/uL (4.5-11.0)
[2020-11-27 15:02] LABS: Bacteria Urine None Seen; Culture Indicated Urine Cult Not Indicated; RBC Urine None Seen (0-5/HPF); WBC Urine None Seen (0-5/HPF)
[2020-11-27 15:04] LABS: Alanine Aminotransferase 31 IU/L (<35); Albumin 4.6 g/dL (3.5-5.0); Albumin Globulin Ratio 1.4 (1.0-2.8); Alkaline Phosphatase 92 U/L (38-126); Aspartate Aminotransferase 29 IU/L (14-36); BUN Creatinine Ratio 22.4 (6-22); Bilirubin Total 0.6 mg/dL (0.2-1.3); Blood Urea Nitrogen 11 mg/dL (7-17); Calcium 9.1 mg/dL (8.4-10.2); Carbon Dioxide 26 mmol/L (22-32); Chloride 107 mmol/L (98-107); Estimated Glomerular Filt Rate > 60.0 mL/min (>60); Globulin 3.4 g/dL (1.7-4.1); Glucose 87 mg/dL (70-100); HEMOLYSIS < 15 (0-50); Lipase 58 U/L (23-300); Potassium 3.8 mmol/L (3.4-5.1); Pregnancy Test Urine Negative (Negative); Sodium 141 mmol/L (137-145)
[2020-11-27] MEDS: KETOROLAC 30 MG/ML VIAL 15 MG IV (15:13)
--- NOTE | 2020-11-27 15:15 | DI.US.S_ITS ---
PROCEDURE: US PELVIC COMPLETE INDICATIONS: LEFT PELVIC PAIN TECHNIQUE: Real-time scanning was performed of the pelvic organs, with image documentation. Additional endovaginal scanning was necessary due to incomplete visualization of the adnexal and endometrial structures by transabdominal scanning. COMPARISON: None. FINDINGS: Uterus: Uterus is normal in size at 6.2 x 3.3 x 4.4 cm. The endometrium measures 5.7 mm in combined thickness. Ovaries: Right ovary measures 1.8 x 1.6 x 2.8 cm. Left ovary measures 2.7 x 1.9 x 1.5 cm. Other: No pathologic free abdominal or pelvic fluid. IMPRESSION: Unremarkable exam. Dictated by: Delmy Robles M.D. on 11/27/2020 at 16:07 Approved by: Delmy Robles M.D. on 11/27/2020 at 16:07
[2020-11-27 15:36] LABS: Lactate (Lactic Acid) 1.2 mmol/L (0.7-2.1)
== END 2020-11-27 17:01 | disposition home or self-care (01) ==
PROVIDERS: Emergency Provider Student in an Organized Health Care Education/Training Program; PCP Family Medicine
DX: R10.32 Left lower quadrant pain (principal); R10.2 Pelvic and perineal pain
CPT/HCPCS: 36415; 74177; 76830; 76856; 80053; 81001; 81025; 83605; 83690; 85025; 96374; 99284; J1885; Q9967

== ENCOUNTER 2021-08-03 09:08 | Emergency (ER) | payer SELFPAY ==
--- NOTE | 2021-08-03 09:10 | DI.RAD.S_ITS ---
PROCEDURE: XR RIBS RT MIN 3V W CXR 1V INDICATIONS: fall in shower TECHNIQUE: 3 views of the right ribs were acquired, along with a single view chest. COMPARISON: [facility], CT, CT ABDOMEN PELVIS W CON, 11/27/2020, 15:20. FINDINGS: Surgical changes and devices: None. Bones and chest wall: Minimal irregularity at the right lateral 9th rib. No suspicious bony lesions. Overlying soft tissues appear unremarkable. Lungs and pleura: No pleural effusions or pneumothorax. Minimal opacity at the left lung base. Mediastinum: Mediastinal contours appear normal. Heart size is normal. IMPRESSION: Minimal irregularity at the right lateral 9th rib. This could represent nondisplaced fracture. Minimal opacity at the left lung base. Favor atelectasis over pneumonia. Dictated by: Rick Mims M.D. on 08/03/2021 at 10:09 Approved by: Rick Mims M.D. on 08/03/2021 at 10:14
[2021-08-03 09:12] VITALS: BP 181/95; PULSE 91; RESP 18; TEMP 36.9; O2SAT 100; BMI 50.1
[2021-08-03 09:22] VITALS: BP 181/95
[2021-08-03 09:23] VITALS: PULSE 94; O2SAT 99
--- NOTE | 2021-08-03 09:53 | ED.FALL ---
HPI - Fall General Chief Complaint: Fall Stated Complaint: i fell climbing into shower this morning Time Seen by Provider: 08/03/21 09:33 Source: patient Mode of arrival: Ambulatory History of Present Illness HPI Narrative: 36-year-old female who is here for evaluation of right-sided rib pain. States this morning she was getting into the shower when she slipped on a rug in the bathroom. She landed on her right side and also her right knee. Did not hit her head. No loss of conscious. Not on blood thinners. Describes pain in her right lower ribs. No abdominal pain. No nausea vomiting. No urinary symptoms. She states that her right knee hurts but she is able to walk. No other injuries from the event. Related Data Home Medications Medication Instructions Recorded Confirmed CA PANTOTHENATE/FOLIC ACID/VIT 1 tab PO QDAY #0 01/07/11 10/24/20 (MULTIVITAMIN) Previous Rx's Medication Instructions Recorded prednisone 20 mg tablet 20 mg PO DAILY #14 tab 11/14/18 cyclobenzaprine 10 mg tablet 10 mg PO TID PRN #12 tab 12/10/19 ketorolac 10 mg tablet 10 mg PO Q6H PRN #20 tab 07/16/20 oxycodone-acetaminophen 5 mg-325 1 tab PO Q8H PRN #10 tab 08/03/21 mg tablet (Percocet) Allergies Allergy/AdvReac Type Severity Reaction Status Date / Time hydrocodone Allergy Verified 11/27/20 14:43 Review of Systems Constitutional Constitutional: Denies headache(s) ENT Ears, Nose, Mouth, and Throat: Denies headache(s) Cardiovascular Cardiovascular: Reports system reviewed and no additional complaints, except as documented Respiratory Respiratory: Reports system reviewed and no additional complaints, except as documented Gastrointestinal Gastrointestinal: Reports system reviewed and no additional complaints, except as documented Genitourinary Genitourinary: Reports system reviewed and no additional complaints, except as documented Musculoskeletal Musculoskeletal: Reports system reviewed and no additional complaints, except as documented Integumentary/Breasts Skin/Breast: Reports system reviewed and no additional complaints, except as documented Neurologic Neurologic: Denies headache(s) Hematologic/Lymphatic On Anticoagulants: No Patient History Medical History (Updated 08/03/21 @ 10:29 by Antony Sheets DO) Posterior right knee pain Right calf pain Social History Smoking Status: Never smoker Smoking Status: Never smoker alcohol intake frequency: 3 or more drinks per day Substance Use Type: does not use Exam Initial Vital Signs Initial Vital Signs: Vital Signs Temperature 98.5 F 08/03/21 09:12 Pulse Rate 91 H 08/03/21 09:12 Respiratory Rate 18 08/03/21 09:12 Blood Pressure 181/95 H 08/03/21 09:12 Pulse Oximetry 100 08/03/21 09:12 HENMT Head: normal to inspection and normocephalic Chest Chest: No crepitus and tenderness (Right-sided lower ribs) Resp Effort & Inspection: normal respiratory effort Auscultation: clear to auscultation bilaterally Cardio Rate: regular rate Rhythm: regular rhythm GI Inspection: normal to inspection Palpation: soft, No firm and No tender Skin General: no rashes or lesions noted Neuro General: patient alert, patient awake, patient oriented x3 and moves all extremities Extrem General: normal to inspection and capillary refill normal Psych Appearance: grossly normal and well kempt Course Orders Ordered: ED Orders 08/03/21 09:10 XR ribs RT min 3V w CXR1V Stat Discontinued Medications Oxycodone/Acetaminophen (Oxycodone/Acetaminophen 5/325 Tablet) 1 tab PO NOW ONE Stop: 08/03/21 10:27 Vital Signs Vital signs: Vital Signs - 8 hr 08/03/21 09:12 Temperature 98.5 F Pulse Rate 91 H Respiratory Rate 18 Blood Pressure 181/95 H Pulse Oximetry 100 MDM - Fall Imaging Data rib x-ray: Radiologist's Impression: [address] [address] XRay Report Signed Patient: Katherine Medellin MR#: [id number] : 1985 Acct:[id number] Age/Sex: 36 / F Date of Service: 08/03/21 Loc: ED Accession Number: [id number] ?? Procedure: XR ribs RT min 3V w CXR1V Ordering Provider: Antony Sheets D.O. PROCEDURE:? XR RIBS RT MIN 3V W CXR 1V ? INDICATIONS:? fall in shower ? TECHNIQUE:? 3 views of the right ribs were acquired, along with a single view chest.? ? COMPARISON:? [facility], CT, CT ABDOMEN PELVIS W CON, 11/27/2020, 15:20. ? FINDINGS:? ? Surgical changes and devices:? None.? ? Bones and chest wall:? Minimal irregularity at the right lateral 9th rib.? No suspicious bony lesions.? Overlying soft tissues appear unremarkable.? ? Lungs and pleura:? No pleural effusions or pneumothorax.? Minimal opacity at the left lung base. ? Mediastinum:? Mediastinal contours appear normal.? Heart size is normal.? ? IMPRESSION:? Minimal irregularity at the right lateral 9th rib.? This could represent nondisplaced fracture. ? Minimal opacity at the left lung base.? Favor atelectasis over pneumonia. ? ? Dictated by: Rick Mims M.D. on 08/03/2021 at 10:09 ? ? Approved by: Rick Mims M.D. on 08/03/2021 at 10:14 MDM Narrative Medical decision making narrative: Patient does have reproducible right-sided lower rib discomfort. Clear lungs. No abdominal tenderness. Rib x-ray shows potential 9th rib fracture which does correspond to the location of her discomfort. No signs of pneumothorax. Was sent home with symptom control. Patient was informed of the findings of the x-ray. She was given return precautions follow-up instructions. She expressed understanding and agreement. Discharge Plan Departure Patient Disposition: Home Clinical Impression: Fracture of rib Instructions: DI for Rib Fracture Activity Restrictions/Additional Instructions: The x-ray did show a right-sided rib fracture. This will take some time to heal but use the pain medication as needed. Contact your primary doctor for a follow-up. Return to the emergency department for any new or worsening symptoms. Prescriptions: New oxycodone-acetaminophen [Percocet] 5-325 mg tablet 1 tab PO Q8H PRN (Reason: pain) Qty: 10 0RF No Action prednisone 20 mg tablet 20 mg PO DAILY Qty: 14 0RF Rx Instructions: Take 2 pills for 5 days then 1 pill for 3 days then 1/2 pill for 2 days CA PANTOTHENATE/FOLIC ACID/VIT (MULTIVITAMIN) 1 tab PO QDAY Qty: 0 0RF cyclobenzaprine 10 mg tablet 10 mg PO TID PRN (Reason: muscle spasm) Qty: 12 0RF ketorolac 10 mg tablet 10 mg PO Q6H PRN (Reason: pain) Qty: 20 0RF Referrals: Víctor Paul MD [Primary Care Provider] -
[2021-08-03 10:32] VITALS: BP 178/95; PULSE 85; RESP 17; O2SAT 95
[2021-08-03] MEDS: OXYCODONE/ACETAMINOPHEN 5/325 TABLET 1 TAB PO (10:32)
== END 2021-08-03 10:39 | disposition home or self-care (01) ==
PROVIDERS: Emergency Provider Emergency Medicine; PCP Family Medicine
DX: M25.561 Pain in right knee (principal); S22.31XA Fracture of one rib, right side, initial encounter for closed fracture; W18.2XXA Fall in (into) shower or empty bathtub, initial encounter
CPT/HCPCS: 71101; 99283; 99284

== ENCOUNTER 2021-08-11 11:20 | Emergency (ER) | payer SELFPAY ==
[2021-08-11 12:01] VITALS: BP 177/84; PULSE 98; RESP 16; TEMP 36.4; O2SAT 100; BMI 50.4
--- NOTE | 2021-08-11 13:06 | ED_ITS ---
HPI - Extremity Problem <Alyson Wendi Rod, [facility] - Last Filed: 08/11/21 17:24> General Chief complaint: Extremity Problem,Nontraumatic Stated complaint: cracked a rib last week pain increasing sob Time Seen by Provider: 08/11/21 13:06 Source: patient Mode of arrival: Wheelchair History of Present Illness HPI Narrative: This is a 36-year-old female who presents to the emergency department after she fell in the shower approximately one week ago. She was seen in the emergency department on 08/03/2021, a right rib x-ray shows a minimal irregularity of the right lateral 9th rib possibly representing a nondisplaced fracture with a minimal opacity at the left lung base favoring atelectasis over pneumonia. Patient presents to the emergency department today for worsening right lower rib pain and tenderness to palpation. She states that this is reproducible, it is painful when her breast rests on this area, she states that she has been using Tylenol, ibuprofen, lidocaine patches and yet a Finder helpful. She said that she is allergic to Vicodin with a rash and was prescribed oxycodone but states that it makes her feel poorly and she did not like it. Related Data Home Medications Medication Instructions Recorded Confirmed CA PANTOTHENATE/FOLIC ACID/VIT 1 tab PO QDAY ##0 01/07/11 10/24/20 (MULTIVITAMIN) Previous Rx's Medication Instructions Recorded prednisone 20 mg tablet 20 mg PO DAILY #14 tabs 11/14/18 cyclobenzaprine 10 mg tablet 10 mg PO TID PRN muscle spasm #12 12/10/19 tabs ketorolac 10 mg tablet 10 mg PO Q6H PRN pain #20 tabs 07/16/20 oxycodone-acetaminophen 5 mg-325 1 tab PO Q8H PRN pain #10 tabs 08/03/21 mg tablet (Percocet) diclofenac sodium 3 % topical gel 1 applic topical BID PRN to right 08/11/21 ribs for pain #100 grams ketorolac 10 mg tablet 10 mg PO TID PRN pain 5 days #14 08/11/21 tabs lidocaine 5 % topical patch 1 patch topical DAILY PRN pain #15 08/11/21 (Lidoderm) ea methocarbamol 500 mg tablet 500 mg PO Q8H PRN muscle pain #14 08/11/21 tabs tramadol 50 mg tablet 50 mg PO DAILY PRN pain #14 tabs 08/11/21 Allergies Allergy/AdvReac Type Severity Reaction Status Date / Time hydrocodone Allergy Verified 08/11/21 12:01 Review of Systems <JOCELINE Larson - Last Filed: 08/11/21 17:24> Review of Systems Narrative: General: denies fever, chills, malaise, sweats, fatigue Head/Neck: denies headache, neck pain, dizziness Eyes: denies visual changes, eye pain Cardio: denies chest pain, palpitations, edema doses right-sided rib pain, tenderness to palpation and to any edge whatsoever. Respiratory: denies dyspnea, cough, orthopnea, denies any shortness of breath or changes to her breathing. GI: denies abdominal pain, nausea, vomiting, or diarrhea : denies dysuria, hematuria, urinary retention, frequency or incontinence MSK: denies joint pain, muscle weakness Skin: denies rash, itching, skin lesions or other Neuro: denies numbness, tingling Patient History <JOCELINE Larson - Last Filed: 08/11/21 17:24> Medical History (Updated 08/11/21 @ 15:09 by JOCELINE Larson) Posterior right knee pain Right calf pain Social History Smoking Status: Never smoker Smoking Status: Never smoker alcohol intake frequency: 0-2 drinks per day Substance Use Type: does not use Exam <JOCELINE Larson - Last Filed: 08/11/21 17:24> Narrative Exam Narrative: Independently reviewed vitals signs and nursing notes. General: cooperative, comfortable, in no acute distress, well groomed Head: atraumatic, symmetrical facial expressions Neck: supple Eyes: equal round and reactive, EOMI, conjunctiva normal Nose: nares patent, no rhinorrhea Mouth/Throat: moist mucus membranes Cardiovascular: regular rate and rhythm, no peripheral edema, warm extremities, Respiratory: normal effort, able to speak in complete sentences, no audible wheezing, stridor, or rales. No retractions or tachypnea. GI: abdomen soft, obese, nontender to palpation in all quadrants, nondistended, no masses, no exquisite tenderness with exam, without guarding or rebound. MSK: moves all extremities, neurovascularly intact, no weakness, normal tone, tenderness over right lower rib area to touch and palpation, difficult to assess for edema due to body habitus, no surrounding erythema, ecchymosis, or open wound, no rash. Skin: brisk capillary refill, no rash, no erythema Neuro: normal speech and cognition, A&O x3 Psych: mental status is grossly normal, congruent mood, normal affect, pleasant and cooperative Initial Vital Signs Initial Vital Signs: Vital Signs Temperature 97.6 F 08/11/21 12:01 Pulse Rate 98 H 08/11/21 12:01 Respiratory Rate 16 08/11/21 12:01 Blood Pressure 177/84 H 08/11/21 12:01 Pulse Oximetry 100 08/11/21 12:01 Oxygen Delivery Method 08/11/21 12:01 <Ana Cristina Leung DO - Last Filed: 08/11/21 18:20> Initial Vital Signs Initial Vital Signs: Vital Signs Temperature 97.6 F 08/11/21 12:01 Pulse Rate 98 H 08/11/21 12:01 Respiratory Rate 16 08/11/21 12:01 Blood Pressure 177/84 H 08/11/21 12:01 Pulse Oximetry 100 08/11/21 12:01 Oxygen Delivery Method 08/11/21 12:01 Course <JOCELINE Larson - Last Filed: 08/11/21 17:24> Orders Ordered: ED Orders 08/11/21 13:37 XR ribs RT 2V Stat Discontinued Medications Acetaminophen (Acetaminophen 325 Mg Tablet) 975 mg PO NOW ONE Stop: 08/11/21 13:39 Last Admin: 08/11/21 14:32 Dose: 975 mg Documented By: MARVA Ketorolac Tromethamine (Ketorolac 30 Mg/Ml Vial) 15 mg IM NOW ONE Stop: 08/11/21 13:39 Last Admin: 08/11/21 14:33 Dose: 15 mg Documented By: MARVA Lidocaine (Lidocaine Patch 1 Each Adh..Patch) 1 each TOP NOW ONE Stop: 08/11/21 13:39 Last Admin: 08/11/21 14:33 Dose: 1 each Documented By: MARVA Tramadol HCl (Tramadol 50 Mg Tablet) 50 mg PO NOW ONE Stop: 08/11/21 13:39 Last Admin: 08/11/21 14:33 Dose: 50 mg Documented By: MARVA Vital Signs Vital signs: Vital Signs - 8 hr 08/11/21 12:01 08/11/21 15:22 Temperature 97.6 F Pulse Rate 98 H 100 H Respiratory Rate 16 18 Blood Pressure 177/84 H 143/73 H Pulse Oximetry 100 97 Oxygen Delivery Method Room Air Room Air <Ana Cristina Leung DO - Last Filed: 08/11/21 18:20> Orders Ordered: ED Orders 08/11/21 13:37 XR ribs RT 2V Stat Discontinued Medications Acetaminophen (Acetaminophen 325 Mg Tablet) 975 mg PO NOW ONE Stop: 08/11/21 13:39 Last Admin: 08/11/21 14:32 Dose: 975 mg Documented By: MARVA Ketorolac Tromethamine (Ketorolac 30 Mg/Ml Vial) 15 mg IM NOW ONE Stop: 08/11/21 13:39 Last Admin: 08/11/21 14:33 Dose: 15 mg Documented By: MARVA Lidocaine (Lidocaine Patch 1 Each Adh..Patch) 1 each TOP NOW ONE Stop: 08/11/21 13:39 Last Admin: 08/11/21 14:33 Dose: 1 each Documented By: MARVA Tramadol HCl (Tramadol 50 Mg Tablet) 50 mg PO NOW ONE Stop: 08/11/21 13:39 Last Admin: 08/11/21 14:33 Dose: 50 mg Documented By: MARVA Vital Signs Vital signs: Vital Signs - 8 hr 08/11/21 12:01 08/11/21 15:22 Temperature 97.6 F Pulse Rate 98 H 100 H Respiratory Rate 16 18 Blood Pressure 177/84 H 143/73 H Pulse Oximetry 100 97 Oxygen Delivery Method Room Air Room Air MDM - Extremity (Nontraumatic) <Alyson Rod [employer] - Last Filed: 08/11/21 17:24> Imaging Data Chest x-ray: Radiologist's Impression: PROCEDURE:? XR RIBS RT MIN 3V W CXR 1V ? INDICATIONS:? fall in shower ? TECHNIQUE:? 3 views of the right ribs were acquired, along with a single view chest.? ? COMPARISON:? [facility], CT, CT ABDOMEN PELVIS W CON, 11/27/2020, 15:20. ? FINDINGS:? ? Surgical changes and devices:? None.? ? Bones and chest wall:? Minimal irregularity at the right lateral 9th rib.? No suspicious bony lesions.? Overlying soft tissues appear unremarkable.? ? Lungs and pleura:? No pleural effusions or pneumothorax.? Minimal opacity at the left lung base. ? Mediastinum:? Mediastinal contours appear normal.? Heart size is normal.? ? IMPRESSION:? Minimal irregularity at the right lateral 9th rib.? This could represent nondisplaced fracture. ? Minimal opacity at the left lung base.? Favor atelectasis over pneumonia. ? ? Dictated by: Rick Mims M.D. on 08/03/2021 at 10:09 ? ? Approved by: Rick Mims M.D. on 08/03/2021 at 10:14 ? rt rib xr from 08/03/21: Radiologist's Impression: PROCEDURE:? XR RIBS RT MIN 3V W CXR 1V ? INDICATIONS:? fall in shower ? TECHNIQUE:? 3 views of the right ribs were acquired, along with a single view chest.? ? COMPARISON:? [facility], CT, CT ABDOMEN PELVIS W CON, 11/27/2020, 15:20. ? FINDINGS:? ? Surgical changes and devices:? None.? ? Bones and chest wall:? Minimal irregularity at the right lateral 9th rib.? No suspicious bony lesions.? Overlying soft tissues appear unremarkable.? ? Lungs and pleura:? No pleural effusions or pneumothorax.? Minimal opacity at the left lung base. ? Mediastinum:? Mediastinal contours appear normal.? Heart size is normal.? ? IMPRESSION:? Minimal irregularity at the right lateral 9th rib.? This could represent nondisplaced fracture. ? Minimal opacity at the left lung base.? Favor atelectasis over pneumonia. ? ? Dictated by: Rick Mims M.D. on 08/03/2021 at 10:09 ? ? Approved by: Rick Mims M.D. on 08/03/2021 at 10:14 ? MDM Narrative Medical decision making narrative: This is a 36-year-old female who presents to the emergency department complaining of worsening right rib pain since her fall on 08/03/2021. She states that she has a 9th lateral rib fracture on the right, on review of her x- ray from 08/03/2021 and as shown above radiology called out a minimal irregularity at the right lateral 9th rib which could represent a nondisplaced fracture however x-ray today of her right ribs shows no acute displaced rib fracture and no pneumothorax. Discussion with Dr. Kay who was the rad iologist who read x-ray and he states that he cannot find an acute displaced rib fracture on the right and states it was not definitely redemonstrated which is likely due to her body habitus. Her BMI is 50.5. Patient states that she has been using Tylenol, lidocaine patches and muscle relaxers for her pain, states that the oxycodone was too strong for her and so she continues to have pain because the Tylenol is not adequate. She was given tramadol in the emergency department today, lidocaine patch over the painful area, Toradol, and encouraged to use topical modalities at home in combination with oral medications for her pain. This is most likely costochondritis, there is no acute abnormality found on x-ray, breath sounds are clear throughout all cueva without increased work of breathing, hypoxia, tachypnea, or shortness of breath. Patient was prescribed Toradol p.o., diclofenac sodium topical gel 3%, methocarbamol, lidocaine patches, and tramadol as needed for her pain. Encouraged physical therapy referral and close follow-up with PCP if this is ongoing, or return to the emergency department for any new or worsening symptoms. Patient is appropriate and amenable to discharge home. Vital signs are stable on repeat examination is unremarkable. Patient has been informed of results. Patient has been given strict return to ER precautions for any new or worsening symptoms. Patient understands to follow up closely with outpatient providers as instructed. Patient understands plan and agrees to discharge home. All questions and concerns answered at this time. Discharge Plan Departure Patient Disposition: Home Clinical Impression: Acute costochondritis Instructions: DI for Rib Fracture, DI for Costochondritis Activity Restrictions/Additional Instructions: *You have been diagnosed with right-sided rib pain from your fall on 08/03/2021. The x-ray today does not appear that anything is displaced or changed in position since her injury. I hope that you start feeling better soon. This is most likely soft tissue pain, inflammation and costochondritis. Please use ice like you have been, try a combination of topical modality, muscle relaxer if you need it, and pain medication which is Tylenol and Toradol ( or other NSAID like Ibuprofen but not mixing them), and Ultram as needed. Please contact Dr. Paul and ask for referral to physical therapy if this is not improving after 1-2 weeks. These can be quite painful, I hope you start feeling better soon. Try to stay active, that were prevent you from getting too stiff and sore when you get up. Stay hydrated, please return for any new or worsening symptoms, I hope you feel better soon. *What to do: *Please continue to take your regular medications as directed. [x ] New medication prescriptions sent to your pharmacy: [ [facility]] [ ] New medication written as a paper prescription [ ] No new medications given *Please follow up with your primary care provider in 2-3 days, call for an appointment. Let them know you were seen in the Emergency Department and that we asked that you be seen for follow-up. We will electronically transmit a record of today's note if your PCP is in our system *If you do not have a primary care provider please contact [phone] to establish care with one of [facility] primary care providers. *Return to Emergency Department if you should have any new, worsening or concerning symptoms, such as [fever greater than 101F, chills, worsening pain, persistent vomiting or other bothersome symptoms] Prescriptions: New lidocaine [Lidoderm] 5 % adhesive patch,medicated 1 patch topical DAILY PRN (Reason: pain) Qty: 15 0RF Rx Instructions: leave on most painful area for up to 12 hrs tramadol 50 mg tablet 50 mg PO DAILY PRN (Reason: pain) Qty: 14 0RF ketorolac 10 mg tablet 10 mg PO TID PRN (Reason: pain) 5 Days Qty: 14 0RF Rx Instructions: take with food and water please diclofenac sodium 3 % gel 1 applic topical BID PRN (Reason: to right ribs for pain) Qty: 100 0RF methocarbamol 500 mg tablet 500 mg PO Q8H PRN (Reason: muscle pain) Qty: 14 0RF No Action prednisone 20 mg tablet 20 mg PO DAILY Qty: 14 0RF Rx Instructions: Take 2 pills for 5 days then 1 pill for 3 days then 1/2 pill for 2 days CA PANTOTHENATE/FOLIC ACID/VIT (MULTIVITAMIN) 1 tab PO QDAY Qty: 0 cyclobenzaprine 10 mg tablet 10 mg PO TID PRN (Reason: muscle spasm) Qty: 12 0RF ketorolac 10 mg tablet 10 mg PO Q6H PRN (Reason: pain) Qty: 20 0RF oxycodone-acetaminophen [Percocet] 5-325 mg tablet 1 tab PO Q8H PRN (Reason: pain) Qty: 10 0RF Referrals: Víctor Paul MD [Primary Care Provider] - Visit Report Forms: Patient Portal/API <Ana Cristina Leung DO - Last Filed: 08/11/21 18:20> Cosign ED Attending Racielature Attestation: I was immediately available in the department for consultation. Documentation has been reviewed.
--- NOTE | 2021-08-11 13:37 | DI.RAD.S_ITS ---
PROCEDURE: XR RIBS RT 2V INDICATIONS: worsening right lower rib pain TECHNIQUE: 2 views of the left ribs were acquired. COMPARISON: [facility], CR, XR RIBS RT MIN 3V W CXR 1V, 08/03/2021, 9:07. FINDINGS: Surgical changes and devices: None. Bones and chest wall: No acute displaced rib fracture. No suspicious bony lesions. Overlying soft tissues appear unremarkable. Lungs and pleura: The visualized lung appears clear. No pleural effusions or pneumothorax are visible. IMPRESSION: No acute displaced rib fracture. No pneumothorax. Dictated by: Rambo Kay M.D. on 08/11/2021 at 15:00 Approved by: Rambo Kay M.D. on 08/11/2021 at 15:02
[2021-08-11] MEDS: ACETAMINOPHEN 325 MG TABLET 975 MG PO (14:32)
[2021-08-11] MEDS: TRAMADOL 50 MG TABLET PO (14:33)
[2021-08-11] MEDS: KETOROLAC 30 MG/ML VIAL 15 MG IM (14:33)
[2021-08-11] MEDS: LIDOCAINE PATCH 1 EACH ADH..PATCH TOP (14:33)
[2021-08-11 15:22] VITALS: BP 143/73; PULSE 100; RESP 18; O2SAT 97
== END 2021-08-11 15:22 | disposition home or self-care (01) ==
PROVIDERS: Emergency Provider Nurse Practitioner Critical Care Medicine; PCP Family Medicine
DX: M94.0 Chondrocostal junction syndrome [Tietze] (principal)
CPT/HCPCS: 71100; 96372; 99283; J1885

== ENCOUNTER → 2021-11-07 10:42 | Outpatient (CLI) | payer SELFPAY ==
--- NOTE | 2021-11-07 10:45 | DI.RAD.S_ITS ---
PROCEDURE: XR CHEST 2V INDICATIONS: Hemoptysis TECHNIQUE: 2 views of the chest were acquired. COMPARISON: [facility], , XR CHEST 2V, 07/01/2017, 10:07. FINDINGS: Surgical changes and devices: None. Lungs and pleura: There is a density in the left lower lobe. No pleural effusions or pneumothorax. Mediastinum: Mediastinal contours are normal. Heart size is normal. Bones and chest wall: No suspicious bony abnormalities. Soft tissues appear unremarkable. IMPRESSION: 1. A density in the left lower lobe. Although the finding may be caused by artifact from costochondral calcification, cannot rule out a lung mass. CT chest with contrast is recommended in this patient with hemoptysis. Dictated by: Alli Bravo M.D. on 11/07/2021 at 17:36 Approved by: Alli Bravo M.D. on 11/07/2021 at 17:38
== END ==
PROVIDERS: PCP Family Medicine; Referring Provider Family Medicine; Visit Provider Family Medicine
DX: R04.89 Hemorrhage from other sites in respiratory passages (principal)
CPT/HCPCS: 71046

== ENCOUNTER 2022-03-01 12:55 | Emergency (ER) | payer SELFPAY ==
[2022-03-01 13:24] VITALS: BP 158/87; PULSE 138; RESP 26; TEMP 39.2; O2SAT 97; BMI 53.1
[2022-03-01] MEDS: ONDANSETRON 4 MG/2 ML INJ IV (14:01)
[2022-03-01] MEDS: SODIUM CHLORIDE 0.9% 1,000 ML 1000 ML IV (14:01)
--- NOTE | 2022-03-01 14:02 | DI.RAD.S_ITS ---
PROCEDURE: XR CHEST 2V INDICATIONS: pneumonia? TECHNIQUE: 2 views of the chest were acquired. COMPARISON: [facility], CR, XR CHEST 2V, 11/07/2021, 11:15. FINDINGS: Surgical changes and devices: None. Lungs and pleura: Lungs are clear. No pleural effusions or pneumothorax. Mediastinum: Mediastinal contours are normal. Heart size is normal. Bones and chest wall: No suspicious bony abnormalities. Soft tissues appear unremarkable. IMPRESSION: No acute cardiopulmonary abnormality. Dictated by: Loco Israel M.D. on 03/01/2022 at 14:47 Approved by: Loco Israel M.D. on 03/01/2022 at 14:47
[2022-03-01 14:10] LABS: Add Manual Diff / Slide Review NO; Basophils Absolute Auto 100 /uL (0-100); Basophils Percent Auto 0.5 % (0-2); Eosinophils Absolute Auto 0 /uL (0-450); Eosinophils Percent Auto 0.2 % (2-4); Hematocrit 43.6 % (36-46); Hemoglobin 14.6 g/dL (12.0-16.0); Lymphocytes Absolute Auto 1100 /uL (1100-4500); Lymphocytes Percent Auto 9.2 % (25-40); Mean Corpuscular HGB Conc 33.4 % (30-36); Mean Corpuscular Hemoglobin 30.7 PG (26-34); Mean Corpuscular Volume 91.8 fL (80-100); Monocytes Absolute Auto 900 /uL (0-900); Monocytes Percent Auto 7.4 % (3-14); Neutrophils Absolute Auto 9900 /uL (1500-7000); Neutrophils Percent Auto 82.7 % (50-75); Platelet Count 188 X10^3/uL (150-400); Red Blood Cell Count 4.75 X10^6/uL (4.0-5.2); Red Cell Distribution Width 13.4 % (11.6-14.8)
[2022-03-01] MEDS: ACETAMINOPHEN 325 MG TABLET 975 MG PO (14:11)
[2022-03-01 14:17] LABS: INR 1.2 (0.9-1.3); Prothrombin Time 14.3 SECONDS (10.1-12.7)
[2022-03-01 14:20] LABS: PTT Partial Thromboplastin Tim 29 SECONDS (26-36)
[2022-03-01 14:24] LABS: Influenza A - CEPHEID Flu A POSITIVE (NEGATIVE); Influenza B - CEPHEID Flu B NEGATIVE (NEGATIVE); Respiratory Syncytial Virus Negative (Negative)
[2022-03-01 14:30] LABS: COVID-19 CEPHEID 4-PLEX PCR Negative (Negative)
[2022-03-01 14:34] LABS: Alanine Aminotransferase 62 IU/L (<35); Albumin Globulin Ratio 1.1 (1.0-2.8); Alkaline Phosphatase 97 U/L (38-126); Aspartate Aminotransferase 61 IU/L (14-36); BUN Creatinine Ratio 11.1 (6-22); Blood Urea Nitrogen 5 mg/dL (7-17); Calcium 8.5 mg/dL (8.4-10.2); Carbon Dioxide 20 mmol/L (22-32); Chloride 103 mmol/L (98-107); Estimated Glomerular Filt Rate > 60 mL/min (>60); Globulin 3.7 g/dL (1.7-4.1); Glucose 113 mg/dL (70-100); HEMOLYSIS 18 (0-50); Lipase 39 U/L (23-300); Potassium 3.9 mmol/L (3.4-5.1); Sodium 137 mmol/L (137-145); Total Protein 7.7 g/dL (6.3-8.2)
[2022-03-01 15:15] LABS: Appearance Urine UA SL CLOUDY; Bilirubin Urine UA NEGATIVE (NEGATIVE); Color Urine UA YELLOW; Glucose Urine UA NEGATIVE (Negative); Ketones Urine UA NEGATIVE (NEGATIVE); Leukocyte Esterase Urine UA NEGATIVE (NEGATIVE); Nitrite Urine UA NEGATIVE (Negative); Occult Blood Urine UA NEGATIVE (Negative); Protein Urine UA NEGATIVE (Negative); Specific Gravity Urine UA 1.015 (1.000-1.035); Urobilinogen Urine UA 0.2 E.U./dL (0.2)
[2022-03-01] MEDS: cefTRIAXone 2,000 MG in SODIUM CHLORIDE 0.9% 100 ML 200 MG IV (15:25)
[2022-03-01 15:29] VITALS: TEMP 36.8
[2022-03-01 15:29] LABS: Bacteria Urine Few (2-10); Culture Indicated Urine Cult Not Indicated; Mucus Urine 1+ (Negative); RBC Urine None Seen (0-5/HPF); Squamous Epithelial Cell Urine 5-10 /HPF (0-5/HPF); WBC Urine 1-5/HPF (0-5/HPF)
[2022-03-01 15:33] LABS: D Dimer 608 ng/ml (<500)
[2022-03-01] MEDS: KETOROLAC 30 MG/ML VIAL 20 MG IV (15:33)
--- NOTE | 2022-03-01 15:45 | DI.CT.S_ITS ---
PROCEDURE: CT ANGIO CHEST PE PROTOCOL INDICATIONS: + dimer, hemoptysis TECHNIQUE: After the administration of intravenous contrast, 2 mm thick sections acquired from the pulmonary apices to the posterior costophrenic angles. 3-dimensional maximum intensity projection (MIP) coronal and sagittal reformats were then acquired through the thorax. For radiation dose reduction, the following was used: automated exposure control, adjustment of mA and/or kV according to patient size. COMPARISON: None. FINDINGS: Image quality: Excellent. Pulmonary arteries: The pulmonary arteries are not well opacified due to bolus timing with the pulmonary arteries measuring 160 Hounsfield units. No central pulmonary artery embolism is seen. Sensitivity for evaluation of peripheral subsegmental pulmonary arteries is decreased but within these limitations no pulmonary embolism is seen. Lungs and pleura: There is a consolidation in the left lower lobe. No pneumothorax or pleural effusion. Mediastinum: Heart size is normal, without pericardial effusion. No mediastinal or hilar adenopathy. Thoracic aorta is normal in caliber and enhancement. Esophagus is normal in caliber, without hiatal hernia. Bones and chest wall: No suspicious bony lesions. Ribs and thoracic spine appear intact throughout. Thyroid gland is normal. No axillary or supraclavicular adenopathy. Abdomen: Visualized upper abdominal solid organs appear normal in the early arterial phase of enhancement. IMPRESSION: 1. No central pulmonary artery embolism. Evaluation of the subsegmental pulmonary arteries is limited in this case, however within these limitations no pulmonary embolism is seen. 2. Left lower lobe consolidation. Dictated by: Loco Israel M.D. on 03/01/2022 at 16:27 Approved by: Loco Israel M.D. on 03/01/2022 at 16:32
--- NOTE | 2022-03-01 15:59 | ED_ITS ---
HPI - SOB/Dyspnea <Alyson Wendi Rod, [facility] - Last Filed: 03/01/22 16:56> General Chief Complaint: Shortness of Breath/Dyspnea Stated Complaint: thinks she has pneumonia, trouble breathing Time Seen by Provider: 03/01/22 14:01 Source: patient Mode of arrival: Ambulatory Limitations: no limitations History of Present Illness HPI Narrative: This is a 36-year-old female presents to the emergency department with concerns about pneumonia. States that she is had this before, injured her left side when she reached into the deep freezer a couple of weeks ago after an upper respiratory infection and states that she might of popped a rib or injured her ribs space because she had pain for a few days. States that she has had fever, chills, and hemoptysis which started today and increased in frequency. She denies history of blood clots, she endorses history of pneumonia, denies history of asthma, states that she has a fever and feel short of breath. Does not have wheezing, her productive cough has had streaks of blood in it today. Denies weakness, or vomiting at home but vomited here in the emergency department x1. She denies diarrhea. Related Data Home Medications Medication Instructions Recorded Confirmed CA PANTOTHENATE/FOLIC ACID/VIT 1 tab PO QDAY ##0 01/07/11 10/13/21 (MULTIVITAMIN) Previous Rx's Medication Instructions Recorded prednisone 20 mg tablet 20 mg PO DAILY #14 tabs 11/14/18 cyclobenzaprine 10 mg tablet 10 mg PO TID PRN muscle spasm #12 12/10/19 tabs ketorolac 10 mg tablet 10 mg PO Q6H PRN pain #20 tabs 07/16/20 oxycodone-acetaminophen 5 mg-325 1 tab PO Q8H PRN pain #10 tabs 08/03/21 mg tablet (Percocet) diclofenac sodium 3 % topical gel 1 applic topical BID PRN to right 08/11/21 ribs for pain #100 grams lidocaine 5 % topical patch 1 patch topical DAILY PRN pain #15 08/11/21 (Lidoderm) ea methocarbamol 500 mg tablet 500 mg PO Q8H PRN muscle pain #14 08/11/21 tabs tramadol 50 mg tablet 50 mg PO DAILY PRN pain #14 tabs 08/11/21 albuterol sulfate 90 mcg/actuation 2 puff inhalation Q6H PRN 10/13/21 aerosol inhaler shortness of breath or wheezing #6.7 grams benzonatate 100 mg capsule 100 mg PO BID PRN cough #20 caps 10/13/21 inhalational spacing device #10 ea 10/13/21 (Aerochamber MV spacer) acetaminophen 300 mg-codeine 30 mg 1 tab PO Q8H PRN pain #10 tabs 03/01/22 tablet amoxicillin 500 mg tablet 1,000 mg PO BID 5 days #20 tabs 03/01/22 azithromycin 250 mg tablet See Rx Instructions PO .COMPLEX #6 03/01/22 tabs guaifenesin 600 mg tablet, 600 mg PO BID #14 tabs 03/01/22 extended release 12 hr (Mucinex) methylprednisolone 4 mg tablets in See Rx Instructions PO .COMPLEX 03/01/22 a dose pack (Medrol (Kyle)) #21 ea ondansetron 4 mg disintegrating 4 mg PO Q8H PRN nausea and 03/01/22 tablet vomiting #10 tabs oseltamivir 75 mg capsule (Tamiflu) 75 mg PO BID 5 days #10 caps 03/01/22 Allergies Allergy/AdvReac Type Severity Reaction Status Date / Time hydrocodone Allergy Hives Verified 03/01/22 13:24 Review of Systems <JOCELINE Larson - Last Filed: 03/01/22 16:56> Review of Systems ROS Unobtainable: All systems reviewed & are unremarkable except as noted in HPI and below Patient History <JOCELINE Larson - Last Filed: 03/01/22 16:56> Medical History (Updated 03/03/22 @ 15:18 by Sondra Moya DO) Posterior right knee pain Right calf pain Social History Smoking Status: Never smoker Smoking Status: Never smoker alcohol intake frequency: a few times a week Substance Use Type: does not use Exam <JOCELINE Larson - Last Filed: 03/01/22 16:56> Narrative Exam Narrative: Reviewed vitals signs and nursing notes. General: cooperative, comfortable, in no acute distress, well groomed HEENT: symmetrical facial expressions, moist mucous membranes Cardiovascular: regular rate and rhythm, no peripheral edema, warm extremities Respiratory: normal effort, diminished breath sounds to right middle lobe and bi lateral lower lobes without wheezes, rhonchi, or wheezing, she is tachypneic, without hypoxia and has mildly increased work of breathing. She is able to speak in 3-5 word sentences without needing to stop for breathing. GI: abdomen soft, nontender to palpation, nondistended, without masses, rebound tenderness or exquisite tenderness with exam. Left CVA tenderness to palpation, emesis x1 in the emergency department MSK: moves all extremities, neurovascularly intact, no weakness, normal tone lef t-sided flank pain/CVA tenderness to palpation Skin: brisk capillary refill, without pallor or erythema Neuro: normal speech and cognition, A&O x3, ambulatory, clear speech Psych: mental status is grossly normal, congruent mood, normal affect, pleasant and cooperative Initial Vital Signs Initial Vital Signs: Vital Signs Temperature 102.6 F H 03/01/22 13:24 Pulse Rate 138 H 03/01/22 13:24 Respiratory Rate 26 H 03/01/22 13:24 Blood Pressure 158/87 H 03/01/22 13:24 Pulse Oximetry 97 03/01/22 13:24 Oxygen Delivery Method 03/01/22 13:24 <Bret Aburto DO - Last Filed: 03/05/22 10:47> Initial Vital Signs Initial Vital Signs: Vital Signs Temperature 102.6 F H 03/01/22 13:24 Pulse Rate 138 H 03/01/22 13:24 Respiratory Rate 26 H 03/01/22 13:24 Blood Pressure 158/87 H 03/01/22 13:24 Pulse Oximetry 97 03/01/22 13:24 Oxygen Delivery Method 03/01/22 13:24 Scores <JOCELINE Larson - Last Filed: 03/01/22 16:56> PERC Score Age greater than or equal to 50 years: No Heart rate greater than or equal to 100 bpm: Yes Room Air O2 Sat less than 95%: No Unilateral leg swelling: No Recent trauma or surgery: No Hemoptysis: Yes Prior PE or DVT: No Hormone Use: No Total PERC Score: 2 qSOFA Altered Mental Status (GCS <15): No Respiratory rate greater than/equal to 22: Yes Systolic blood pressure less than or equal to 100: No qSOFA Total: 1 0-1 Not High Risk 1-3 High risk Wells' Criteria for PE Clinical signs and symptoms of DVT: No PE is #1 Dx or equally likely: No Heart rate > 100: Yes Immobilization at least 3 days or surg in previous 4 weeks: No History of PE or DVT: No Hemoptysis: Yes Malignancy w/Treatment within 6 months or palliative: No Wells' PE Score total: 2.5 <Bret Aburto DO - Last Filed: 03/05/22 10:47> PERC Score Total PERC Score: 2 qSOFA qSOFA Total: 1 Wells' Criteria for PE Wells' PE Score total: 2.5 Course <JOCELINE Larson - Last Filed: 03/01/22 16:56> Orders Ordered: Discontinued Medications Acetaminophen (Acetaminophen 325 Mg Tablet) 975 mg PO NOW ONE Stop: 03/01/22 14:08 Last Admin: 03/01/22 14:11 Dose: 975 mg Documented By: FILEMON Dexamethasone (Dexamethasone 10 Mg/Ml Vial) 10 mg IV NOW ONE Stop: 03/01/22 15:28 Last Admin: 03/01/22 16:35 Dose: 10 mg Documented By: FILEMON Sodium Chloride (Normal Saline 0.9%) 1,000 mls @ 1,000 mls/hr IV BOLUS ONE Stop: 03/01/22 14:29 Last Infusion: 03/01/22 15:01 Dose: 0 mls/hr Documented By: Admin: 03/01/22 14:01 Dose: 1,000 mls/hr Documented By: FILEMON Azithromycin 500 mg/ Dextrose 250 mls @ 250 mls/hr IV NOW ONE Stop: 03/01/22 14:45 Last Infusion: 03/01/22 18:03 Dose: 0 mls/hr Documented By: Admin: 03/01/22 16:46 Dose: 250 mls/hr Documented By: FILEMON Ceftriaxone Sodium 2,000 mg/ (Sodium Chloride) 100 mls @ 200 mls/hr IV NOW ONE Stop: 03/01/22 14:45 Last Infusion: 03/01/22 15:55 Dose: 0 mls/hr Documented By: Admin: 03/01/22 15:25 Dose: 200 mls/hr Documented By: FILEMON Lactated Ringer's (Lactated Ringers) 1,572 mls @ 524 mls/hr 30 ml/kg infuse over 3 hr (1572 ml) IV NOW ONE Stop: 03/01/22 17:43 Last Infusion: 03/01/22 18:07 Dose: 0 mls/hr Documented By: Admin: 03/01/22 16:59 Dose: 524 mls/hr Documented By: FILEMON Ketorolac Tromethamine (Ketorolac 30 Mg/Ml Vial) 20 mg IV NOW ONE Stop: 03/01/22 15:04 Last Admin: 03/01/22 15:33 Dose: 20 mg Documented By: FILEMON Ondansetron HCl (Ondansetron 4 Mg/2 Ml Inj) 4 mg IV NOW PRN PRN Reason: Nausea And Vomiting Last Admin: 03/01/22 14:01 Dose: 4 mg Documented By: FILEMON Ondansetron HCl (Ondansetron 4 Mg/2 Ml Inj) 4 mg IV NOW ONE Stop: 03/01/22 15:04 Last Admin: 03/01/22 15:31 Dose: Not Given Documented By: FILEMON Oseltamivir Phosphate (Oseltamivir 75 Mg Capsule) 75 mg PO NOW ONE Stop: 03/01/22 15:33 Last Admin: 03/01/22 16:35 Dose: 75 mg Documented By: FILEMON Vital Signs Vital signs: Vital Signs - 8 hr 03/01/22 13:24 03/01/22 15:29 Temperature 102.6 F H 98.2 F Pulse Rate 138 H Respiratory Rate 26 H Blood Pressure 158/87 H Pulse Oximetry 97 Oxygen Delivery Method Room Air <Bret Aburto DO - Last Filed: 03/05/22 10:47> Orders Ordered: Discontinued Medications Acetaminophen (Acetaminophen 325 Mg Tablet) 975 mg PO NOW ONE Stop: 03/01/22 14:08 Last Admin: 03/01/22 14:11 Dose: 975 mg Documented By: FILEMON Dexamethasone (Dexamethasone 10 Mg/Ml Vial) 10 mg IV NOW ONE Stop: 03/01/22 15:28 Last Admin: 03/01/22 16:35 Dose: 10 mg Documented By: FILEMON Sodium Chloride (Normal Saline 0.9%) 1,000 mls @ 1,000 mls/hr IV BOLUS ONE Stop: 03/01/22 14:29 Last Infusion: 03/01/22 15:01 Dose: 0 mls/hr Documented By: Admin: 03/01/22 14:01 Dose: 1,000 mls/hr Documented By: FILEMON Azithromycin 500 mg/ Dextrose 250 mls @ 250 mls/hr IV NOW ONE Stop: 03/01/22 14:45 Last Infusion: 03/01/22 18:03 Dose: 0 mls/hr Documented By: Admin: 03/01/22 16:46 Dose: 250 mls/hr Documented By: FILEMON Ceftriaxone Sodium 2,000 mg/ (Sodium Chloride) 100 mls @ 200 mls/hr IV NOW ONE Stop: 03/01/22 14:45 Last Infusion: 03/01/22 15:55 Dose: 0 mls/hr Documented By: Admin: 03/01/22 15:25 Dose: 200 mls/hr Documented By: FILEMON Lactated Ringer's (Lactated Ringers) 1,572 mls @ 524 mls/hr 30 ml/kg infuse over 3 hr (1572 ml) IV NOW ONE Stop: 03/01/22 17:43 Last Infusion: 03/01/22 18:07 Dose: 0 mls/hr Documented By: Admin: 03/01/22 16:59 Dose: 524 mls/hr Documented By: FILEMON Ketorolac Tromethamine (Ketorolac 30 Mg/Ml Vial) 20 mg IV NOW ONE Stop: 03/01/22 15:04 Last Admin: 03/01/22 15:33 Dose: 20 mg Documented By: FILEMON Ondansetron HCl (Ondansetron 4 Mg/2 Ml Inj) 4 mg IV NOW PRN PRN Reason: Nausea And Vomiting Last Admin: 03/01/22 14:01 Dose: 4 mg Documented By: FILEMON Ondansetron HCl (Ondansetron 4 Mg/2 Ml Inj) 4 mg IV NOW ONE Stop: 03/01/22 15:04 Last Admin: 03/01/22 15:31 Dose: Not Given Documented By: FILEMON Oseltamivir Phosphate (Oseltamivir 75 Mg Capsule) 75 mg PO NOW ONE Stop: 03/01/22 15:33 Last Admin: 03/01/22 16:35 Dose: 75 mg Documented By: FILEMON Vital Signs Vital signs: Vital Signs - 8 hr 03/01/22 13:24 03/01/22 15:29 Temperature 102.6 F H 98.2 F Pulse Rate 138 H Respiratory Rate 26 H Blood Pressure 158/87 H Pulse Oximetry 97 Oxygen Delivery Method Room Air MDM - SOB/Dyspnea <Alyson Wendi Rod, [facility] - Last Filed: 03/01/22 16:56> Lab Data Result diagrams: 03/01/22 13:50 03/01/22 13:50 Labs: Lab Results 03/01/22 03/01/22 03/01/22 Range/Units 13:30 13:50 13:50 WBC 12.0 H (4.5-11.0) X10^3/uL RBC 4.75 (4.0-5.2) X10^6/uL Hgb 14.6 (12.0-16.0) g/dL Hct 43.6 (36-46) % MCV 91.8 (80-100) fL MCH 30.7 (26-34) PG MCHC 33.4 (30-36) % RDW 13.4 (11.6-14.8) % Plt Count 188 (150-400) X10^3/uL Neut % (Auto) 82.7 H (50-75) % Lymph % (Auto) 9.2 L (25-40) % Glynn % (Auto) 7.4 (3-14) % Eos % (Auto) 0.2 L (2-4) % Baso % (Auto) 0.5 (0-2) % Neut # (Auto) 9900 H (2735-5079) /uL Lymph # (Auto) 1100 (0836-3082) /uL Glynn # (Auto) 900 (0-900) /uL Eos # (Auto) 0 (0-450) /uL Baso # (Auto) 100 (0-100) /uL PT 14.3 H (10.1-12.7) SECONDS INR 1.2 (0.9-1.3) APTT 29 (26-36) SECONDS D-Dimer (<500) ng/ml Sodium (137-145) mmol/L Potassium (3.4-5.1) mmol/L Chloride (98-107) mmol/L Carbon Dioxide (22-32) mmol/L BUN (7-17) mg/dL Creatinine (0.52-1.04) mg/dL Estimated GFR (>60) mL/min BUN/Creatinine Ratio (6-22) Glucose (70-100) mg/dL Lactate (0.7-2.1) mmol/L Calcium (8.4-10.2) mg/dL Total Bilirubin (0.2-1.3) mg/dL AST (14-36) IU/L ALT (<35) IU/L Alkaline Phosphatase (38-126) U/L Total Protein (6.3-8.2) g/dL Albumin (3.5-5.0) g/dL Globulin (1.7-4.1) g/dL Albumin/Globulin Ratio (1.0-2.8) Lipase (23-300) U/L Procalcitonin (<0.5) ng/mL Urine Color Urine Appearance Urine pH (4.5-8.0) Ur Specific [place] (1.000-1.035) Urine Protein (Negative) Urine Glucose (UA) (Negative) g/dL Urine Ketones (NEGATIVE) Urine Occult Blood (Negative) Urine Nitrate (Negative) Urine Bilirubin (NEGATIVE) Urine Urobilinogen (0.2) E.U./dL Ur Leukocyte Esterase (NEGATIVE) Urine RBC (0-5/HPF) Urine WBC (0-5/HPF) Ur Squamous Epith Cells (0-5/HPF) Urine Bacteria (None) Urine Mucus (Negative) Ur Culture Indicated? SARS-CoV-2 (PCR) Negative (Negative) Influenza A (RT-PCR) Flu a positive H (NEGATIVE) Influenza B (RT-PCR) Flu b negative (NEGATIVE) RSV (PCR) Negative (Negative) 03/01/22 03/01/22 03/01/22 Range/Units 13:50 13:50 14:44 WBC (4.5-11.0) X10^3/uL RBC (4.0-5.2) X10^6/uL Hgb (12.0-16.0) g/dL Hct (36-46) % MCV (80-100) fL MCH (26-34) PG MCHC (30-36) % RDW (11.6-14.8) % Plt Count (150-400) X10^3/uL Neut % (Auto) (50-75) % Lymph % (Auto) (25-40) % Glynn % (Auto) (3-14) % Eos % (Auto) (2-4) % Baso % (Auto) (0-2) % Neut # (Auto) (9943-3489) /uL Lymph # (Auto) (0800-0952) /uL Glynn # (Auto) (0-900) /uL Eos # (Auto) (0-450) /uL Baso # (Auto) (0-100) /uL PT (10.1-12.7) SECONDS INR (0.9-1.3) APTT (26-36) SECONDS D-Dimer 608 H (<500) ng/ml Sodium 137 (137-145) mmol/L Potassium 3.9 (3.4-5.1) mmol/L Chloride 103 (98-107) mmol/L Carbon Dioxide 20 L (22-32) mmol/L BUN 5 L (7-17) mg/dL Creatinine 0.45 L (0.52-1.04) mg/dL Estimated GFR > 60 (>60) mL/min BUN/Creatinine Ratio 11.1 (6-22) Glucose 113 H (70-100) mg/dL Lactate 2.0 (0.7-2.1) mmol/L Calcium 8.5 (8.4-10.2) mg/dL Total Bilirubin 1.0 (0.2-1.3) mg/dL AST 61 H (14-36) IU/L ALT 62 H (<35) IU/L Alkaline Phosphatase 97 (38-126) U/L Total Protein 7.7 (6.3-8.2) g/dL Albumin 4.0 (3.5-5.0) g/dL Globulin 3.7 (1.7-4.1) g/dL Albumin/Globulin Ratio 1.1 (1.0-2.8) Lipase 39 (23-300) U/L Procalcitonin 0.10 (<0.5) ng/mL Urine Color Urine Appearance Urine pH (4.5-8.0) Ur Specific [place] (1.000-1.035) Urine Protein (Negative) Urine Glucose (UA) (Negative) g/dL Urine Ketones (NEGATIVE) Urine Occult Blood (Negative) Urine Nitrate (Negative) Urine Bilirubin (NEGATIVE) Urine Urobilinogen (0.2) E.U./dL Ur Leukocyte Esterase (NEGATIVE) Urine RBC (0-5/HPF) Urine WBC (0-5/HPF) Ur Squamous Epith Cells (0-5/HPF) Urine Bacteria (None) Urine Mucus (Negative) Ur Culture Indicated? SARS-CoV-2 (PCR) (Negative) Influenza A (RT-PCR) (NEGATIVE) Influenza B (RT-PCR) (NEGATIVE) RSV (PCR) (Negative) 03/01/22 Range/Units 15:05 WBC (4.5-11.0) X10^3/uL RBC (4.0-5.2) X10^6/uL Hgb (12.0-16.0) g/dL Hct (36-46) % MCV (80-100) fL MCH (26-34) PG MCHC (30-36) % RDW (11.6-14.8) % Plt Count (150-400) X10^3/uL Neut % (Auto) (50-75) % Lymph % (Auto) (25-40) % Glynn % (Auto) (3-14) % Eos % (Auto) (2-4) % Baso % (Auto) (0-2) % Neut # (Auto) (0427-2149) /uL Lymph # (Auto) (3978-0287) /uL Glynn # (Auto) (0-900) /uL Eos # (Auto) (0-450) /uL Baso # (Auto) (0-100) /uL PT (10.1-12.7) SECONDS INR (0.9-1.3) APTT (26-36) SECONDS D-Dimer (<500) ng/ml Sodium (137-145) mmol/L Potassium (3.4-5.1) mmol/L Chloride (98-107) mmol/L Carbon Dioxide (22-32) mmol/L BUN (7-17) mg/dL Creatinine (0.52-1.04) mg/dL Estimated GFR (>60) mL/min BUN/Creatinine Ratio (6-22) Glucose (70-100) mg/dL Lactate (0.7-2.1) mmol/L Calcium (8.4-10.2) mg/dL Total Bilirubin (0.2-1.3) mg/dL AST (14-36) IU/L ALT (<35) IU/L Alkaline Phosphatase (38-126) U/L Total Protein (6.3-8.2) g/dL Albumin (3.5-5.0) g/dL Globulin (1.7-4.1) g/dL Albumin/Globulin Ratio (1.0-2.8) Lipase (23-300) U/L Procalcitonin (<0.5) ng/mL Urine Color Yellow Urine Appearance Sl cloudy Urine pH 6.0 (4.5-8.0) Ur Specific [place] 1.015 (1.000-1.035) Urine Protein Negative (Negative) Urine Glucose (UA) Negative (Negative) g/dL Urine Ketones Negative (NEGATIVE) Urine Occult Blood Negative (Negative) Urine Nitrate Negative (Negative) Urine Bilirubin Negative (NEGATIVE) Urine Urobilinogen 0.2 (0.2) E.U./dL Ur Leukocyte Esterase Negative (NEGATIVE) Urine RBC None seen (0-5/HPF) Urine WBC 1-5/hpf (0-5/HPF) Ur Squamous Epith Cells 5-10 /hpf H (0-5/HPF) Urine Bacteria Few (2-10) H (None) Urine Mucus 1+ H (Negative) Ur Culture Indicated? Cult not indicated SARS-CoV-2 (PCR) (Negative) Influenza A (RT-PCR) (NEGATIVE) Influenza B (RT-PCR) (NEGATIVE) RSV (PCR) (Negative) Imaging Data Chest x-ray: Radiologist's Impression: PROCEDURE:? XR CHEST 2V ? INDICATIONS:? pneumonia? ? TECHNIQUE:? 2 views of the chest were acquired.? ? COMPARISON:? [facility], , XR CHEST 2V, 11/07/2021, 11:15. ? FINDINGS:? ? Surgical changes and devices:? None.? ? Lungs and pleura:? Lungs are clear.? No pleural effusions or pneumothorax.? ? Mediastinum:? Mediastinal contours are normal.? Heart size is normal.? ? Bones and chest wall:? No suspicious bony abnormalities.? Soft tissues appear unremarkable.? ? IMPRESSION:? No acute cardiopulmonary abnormality. ? ? ? Dictated by: Loco Israel M.D. on 03/01/2022 at 14:47 ? ? Approved by: Loco Israel M.D. on 03/01/2022 at 14:47 ? CT PE: Radiologist's Impression: Close Chest CTA (Signed) Loco Israel - 03/01/22 Chest X-Ray (Signed) Loco Israel - 03/01/22 Chest X-Ray (Signed) ShellyAlli contreras - 11/07/21 Ribs X-Ray (Signed) Rambo Kay - 08/11/21 Ribs X-Ray (Signed) Rick Mims - 08/03/21 Pelvis Ultrasound (Signed) RoblesVinnyDelmy - 11/27/20 Abdomen/Pelvis CT (Signed) Geovanna Apodaca - 11/27/20 Wrist X-Ray (Signed) Philip Morales - 10/24/20 Foot X-Ray (Signed) Stuart Daily - 07/16/20 Vascular Ultrasound (Signed) Dre Calle - 11/30/19 Mammogram Diagnostic (Signed) Azul Nunes - 02/19/19 Breast Ultrasound (Signed) Azul Nunes - 02/19/[address] (Signed) Moni White - 02/15/19 Abdomen Ultrasound (Signed) Carlos A Urias - 08/26/[address] (Signed) Dre Calle - 01/07/18 Ribs X-Ray (Signed) Anton Kilpatrick - 07/01/17 Chest X-Ray (Signed) Anton Kilpatrick - 07/01/17 Launch?[place] [address] CT Scan Report Signed Patient: Katherine Medellin MR#: [id number] : 1985 Acct:[id number] Age/Sex: 36 / F Date of Service: 03/01/22 Loc: Accession Number: [id number] ?? Procedure: CT angio chest PE protocol Ordering Provider: Alyson Rod PROCEDURE:? CT ANGIO CHEST PE PROTOCOL ? INDICATIONS:? + dimer, hemoptysis ? TECHNIQUE:? After the administration of intravenous contrast, 2 mm thick sections acquired from the pulmonary apices to the posterior costophrenic angles.? 3-dimensional maximum intensity projection (MIP) coronal and sagittal reformats were then acquired through the thorax.? For radiation dose reduction, the following was used:? automated exposure control, adjustment of mA and/or kV according to patient size.? ? COMPARISON:? None. ? FINDINGS:? Image quality:? Excellent.? ? Pulmonary arteries:? The pulmonary arteries are not well opacified due to bolus timing with the pulmonary arteries measuring 160 Hounsfield units.? No central pulmonary artery embolism is seen.? Sensitivity for evaluation of peripheral subsegmental pulmonary arteries is decreased but within these limitations no pulmonary embolism is seen. ? Lungs and pleura:? There is a consolidation in the left lower lobe.? No pneumothorax or pleural effusion. ? Mediastinum:? Heart size is normal, without pericardial effusion.? No mediastinal or hilar adenopathy.? Thoracic aorta is normal in caliber and enhancement.? Esophagus is normal in caliber, without hiatal hernia.? ? Bones and chest wall:? No suspicious bony lesions.? Ribs and thoracic spine appear intact throughout.? Thyroid gland is normal.? No axillary or supraclavicular adenopathy.? ? Abdomen:? Visualized upper abdominal solid organs appear normal in the early arterial phase of enhancement.? ? IMPRESSION:? 1. No central pulmonary artery embolism.? Evaluation of the subsegmental pulmonary arteries is limited in this case, however within these limitations no pulmonary embolism is seen. 2. Left lower lobe consolidation.? ? ? Dictated by: Loco Israel M.D. on 03/01/2022 at 16:27 ? ? Approved by: Loco Israel M.D. on 03/01/2022 at 16:32 ? MDM Narrative Medical decision making narrative: This is a 36-year-old female presents to the emergency department with concerns about pneumonia. She had an injury to her left ribs space 1.5 weeks ago with upper respiratory illness prior to that. Today she met sepsis criteria with fever, tachycardia, lactate of 2.0, leukocytosis, with end-organ dysfunction. Her creatinine remains stable, lab work is significant for leukocytosis of 12.0 without anemia, hemoconcentration pneumonia, left shift, D-dimer is elevated at 608, carbon dioxide of 20 on venous serum, AST and ALT were elevated above her p riors at 61 and 62 respectively, procalcitonin 0.10. UA was cloudy with squamous epithelial cells and few bacteria, likely contaminant, will follow-up on culture. Patient had diminished breath sounds to left lower lobe, tenderness to palpation with dullness to percussion, respiratory panel is positive for influenza A. She had emesis x1, she was resuscitated with 2.5 L of IV fluids, her symptoms were markedly improved, she is now afebrile without severe tachycardia or tachypnea and her symptoms have improved. She was treated for likely community-acquired pneumonia with focal opacity visualized on CT PE exam and clinical evaluation. Her CT PE was negative for pulmonary embolus, evaluation of the subsegmental pulmonary arteries was limited in that case but within those limitations no pulmonary embolism seen and a left lower lobe consolidation was visualized. She had episodes of hemoptysis prompting concern for pulmonary embolus. Patient's symptoms have improved, differential also i ncludes ACS but patient is without chest pain, worsening symptoms, and her symptoms have improved. Patient was given 10 mg Decadron for significant presentation of systemic illness. Other differential diagnoses include bacterial versus viral pneumonia,. patient denies current jelly sputum and hue es chronic alcohol use, lower suspicion for Klebsiella pneumoniae states that her hemoptysis was right red and acute today. She is not immunosuppressed, without recent antibiotics, without recent hospital admission, differential includes pleural effusion, alveolar hemorrhage, bronchitis. Patient is appropriate and amenable to discharge home. Vital signs are stable on repeat examination is unremarkable. Patient has been informed of results. Patient has been given strict return to ER precautions for any new or worsening symptoms. Patient understands to follow up closely with outpatient providers as instructed. Patient understands plan and agrees to discharge home. All questions and concerns answered at this time. <Bret Aburto, - Last Filed: 03/05/22 10:47> Lab Data Labs: Lab Results 03/01/22 03/01/22 03/01/22 Range/Units 13:30 13:50 13:50 WBC 12.0 H (4.5-11.0) X10^3/uL RBC 4.75 (4.0-5.2) X10^6/uL Hgb 14.6 (12.0-16.0) g/dL Hct 43.6 (36-46) % MCV 91.8 (80-100) fL MCH 30.7 (26-34) PG MCHC 33.4 (30-36) % RDW 13.4 (11.6-14.8) % Plt Count 188 (150-400) X10^3/uL Neut % (Auto) 82.7 H (50-75) % Lymph % (Auto) 9.2 L (25-40) % Glynn % (Auto) 7.4 (3-14) % Eos % (Auto) 0.2 L (2-4) % Baso % (Auto) 0.5 (0-2) % Neut # (Auto) 9900 H (3027-6162) /uL Lymph # (Auto) 1100 (2958-4806) /uL Glynn # (Auto) 900 (0-900) /uL Eos # (Auto) 0 (0-450) /uL Baso # (Auto) 100 (0-100) /uL PT 14.3 H (10.1-12.7) SECONDS INR 1.2 (0.9-1.3) APTT 29 (26-36) SECONDS D-Dimer (<500) ng/ml Sodium (137-145) mmol/L Potassium (3.4-5.1) mmol/L Chloride (98-107) mmol/L Carbon Dioxide (22-32) mmol/L BUN (7-17) mg/dL Creatinine (0.52-1.04) mg/dL Estimated GFR (>60) mL/min BUN/Creatinine Ratio (6-22) Glucose (70-100) mg/dL Lactate (0.7-2.1) mmol/L Calcium (8.4-10.2) mg/dL Total Bilirubin (0.2-1.3) mg/dL AST (14-36) IU/L ALT (<35) IU/L Alkaline Phosphatase (38-126) U/L Total Protein (6.3-8.2) g/dL Albumin (3.5-5.0) g/dL Globulin (1.7-4.1) g/dL Albumin/Globulin Ratio (1.0-2.8) Lipase (23-300) U/L Procalcitonin (<0.5) ng/mL Urine Color Urine Appearance Urine pH (4.5-8.0) Ur Specific [place] (1.000-1.035) Urine Protein (Negative) Urine Glucose (UA) (Negative) g/dL Urine Ketones (NEGATIVE) Urine Occult Blood (Negative) Urine Nitrate (Negative) Urine Bilirubin (NEGATIVE) Urine Urobilinogen (0.2) E.U./dL Ur Leukocyte Esterase (NEGATIVE) Urine RBC (0-5/HPF) Urine WBC (0-5/HPF) Ur Squamous Epith Cells (0-5/HPF) Urine Bacteria (None) Urine Mucus (Negative) Ur Culture Indicated? SARS-CoV-2 (PCR) Negative (Negative) Influenza A (RT-PCR) Flu a positive H (NEGATIVE) Influenza B (RT-PCR) Flu b negative (NEGATIVE) RSV (PCR) Negative (Negative) 03/01/22 03/01/22 03/01/22 Range/Units 13:50 13:50 14:44 WBC (4.5-11.0) X10^3/uL RBC (4.0-5.2) X10^6/uL Hgb (12.0-16.0) g/dL Hct (36-46) % MCV (80-100) fL MCH (26-34) PG MCHC (30-36) % RDW (11.6-14.8) % Plt Count (150-400) X10^3/uL Neut % (Auto) (50-75) % Lymph % (Auto) (25-40) % Glynn % (Auto) (3-14) % Eos % (Auto) (2-4) % Baso % (Auto) (0-2) % Neut # (Auto) (6055-4571) /uL Lymph # (Auto) (6584-7901) /uL Glynn # (Auto) (0-900) /uL Eos # (Auto) (0-450) /uL Baso # (Auto) (0-100) /uL PT (10.1-12.7) SECONDS INR (0.9-1.3) APTT (26-36) SECONDS D-Dimer 608 H (<500) ng/ml Sodium 137 (137-145) mmol/L Potassium 3.9 (3.4-5.1) mmol/L Chloride 103 (98-107) mmol/L Carbon Dioxide 20 L (22-32) mmol/L BUN 5 L (7-17) mg/dL Creatinine 0.45 L (0.52-1.04) mg/dL Estimated GFR > 60 (>60) mL/min BUN/Creatinine Ratio 11.1 (6-22) Glucose 113 H (70-100) mg/dL Lactate 2.0 (0.7-2.1) mmol/L Calcium 8.5 (8.4-10.2) mg/dL Total Bilirubin 1.0 (0.2-1.3) mg/dL AST 61 H (14-36) IU/L ALT 62 H (<35) IU/L Alkaline Phosphatase 97 (38-126) U/L Total Protein 7.7 (6.3-8.2) g/dL Albumin 4.0 (3.5-5.0) g/dL Globulin 3.7 (1.7-4.1) g/dL Albumin/Globulin Ratio 1.1 (1.0-2.8) Lipase 39 (23-300) U/L Procalcitonin 0.10 (<0.5) ng/mL Urine Color Urine Appearance Urine pH (4.5-8.0) Ur Specific [place] (1.000-1.035) Urine Protein (Negative) Urine Glucose (UA) (Negative) g/dL Urine Ketones (NEGATIVE) Urine Occult Blood (Negative) Urine Nitrate (Negative) Urine Bilirubin (NEGATIVE) Urine Urobilinogen (0.2) E.U./dL Ur Leukocyte Esterase (NEGATIVE) Urine RBC (0-5/HPF) Urine WBC (0-5/HPF) Ur Squamous Epith Cells (0-5/HPF) Urine Bacteria (None) Urine Mucus (Negative) Ur Culture Indicated? SARS-CoV-2 (PCR) (Negative) Influenza A (RT-PCR) (NEGATIVE) Influenza B (RT-PCR) (NEGATIVE) RSV (PCR) (Negative) 03/01/22 Range/Units 15:05 WBC (4.5-11.0) X10^3/uL RBC (4.0-5.2) X10^6/uL Hgb (12.0-16.0) g/dL Hct (36-46) % MCV (80-100) fL MCH (26-34) PG MCHC (30-36) % RDW (11.6-14.8) % Plt Count (150-400) X10^3/uL Neut % (Auto) (50-75) % Lymph % (Auto) (25-40) % Glynn % (Auto) (3-14) % Eos % (Auto) (2-4) % Baso % (Auto) (0-2) % Neut # (Auto) (4452-4928) /uL Lymph # (Auto) (5652-1165) /uL Glynn # (Auto) (0-900) /uL Eos # (Auto) (0-450) /uL Baso # (Auto) (0-100) /uL PT (10.1-12.7) SECONDS INR (0.9-1.3) APTT (26-36) SECONDS D-Dimer (<500) ng/ml Sodium (137-145) mmol/L Potassium (3.4-5.1) mmol/L Chloride (98-107) mmol/L Carbon Dioxide (22-32) mmol/L BUN (7-17) mg/dL Creatinine (0.52-1.04) mg/dL Estimated GFR (>60) mL/min BUN/Creatinine Ratio (6-22) Glucose (70-100) mg/dL Lactate (0.7-2.1) mmol/L Calcium (8.4-10.2) mg/dL Total Bilirubin (0.2-1.3) mg/dL AST (14-36) IU/L ALT (<35) IU/L Alkaline Phosphatase (38-126) U/L Total Protein (6.3-8.2) g/dL Albumin (3.5-5.0) g/dL Globulin (1.7-4.1) g/dL Albumin/Globulin Ratio (1.0-2.8) Lipase (23-300) U/L Procalcitonin (<0.5) ng/mL Urine Color Yellow Urine Appearance Sl cloudy Urine pH 6.0 (4.5-8.0) Ur Specific [place] 1.015 (1.000-1.035) Urine Protein Negative (Negative) Urine Glucose (UA) Negative (Negative) g/dL Urine Ketones Negative (NEGATIVE) Urine Occult Blood Negative (Negative) Urine Nitrate Negative (Negative) Urine Bilirubin Negative (NEGATIVE) Urine Urobilinogen 0.2 (0.2) E.U./dL Ur Leukocyte Esterase Negative (NEGATIVE) Urine RBC None seen (0-5/HPF) Urine WBC 1-5/hpf (0-5/HPF) Ur Squamous Epith Cells 5-10 /hpf H (0-5/HPF) Urine Bacteria Few (2-10) H (None) Urine Mucus 1+ H (Negative) Ur Culture Indicated? Cult not indicated SARS-CoV-2 (PCR) (Negative) Influenza A (RT-PCR) (NEGATIVE) Influenza B (RT-PCR) (NEGATIVE) RSV (PCR) (Negative) Discharge Plan Departure Patient Disposition: Home Clinical Impression: Pneumonia and influenza, Sepsis due to pneumonia Instructions: Influenza, DI for Pneumonia -- Adult Activity Restrictions/Additional Instructions: *You have been diagnosed with pneumonia, primarily in the left lower lobe, influenza, and you came in with sepsis today. You were very sick. Your symptoms losartan improve with antibiotics. If you do not get a little better in the next 24 hours, please return to the emergency department. Please take these medications help treat your symptoms, it is possible that you are not able to get the Tamiflu for your influenza because of national shortage. Please follow-up with your primary care provider as soon as possible, call and schedule a follow-up appointment with anybody to see you just for recheck. Your CT of your chest does not show any blood clot in your lungs. The blood in your sputum should improve as well. Please use Mucinex for productive cough, stay hydrated, take Tylenol and ibuprofen around the clock as needed, take omeprazole or something to buffer your stomach so that you do not get an ulcer in this physically stressed state. Thank you for coming in, I hope this gets better quickly. *What to do: *Please continue to take your regular medications as directed. [ x] New medication prescriptions sent to your pharmacy: [[facility] ] [ ] New medication written as a paper prescription [ ] No new medications given *Please follow up with your primary care provider in 2-3 days, call for an appointment. Let them know you were seen in the Emergency Department and that we asked that you be seen for follow-up. We will electronically transmit a record of today's note if your PCP is in our system *If you do not have a primary care provider please contact [phone] to establish care with one of the [facility] primary care providers. *Return to Emergency Department if you should have any new, worsening, or concerning symptoms, such as [fever greater than 101F, chills, worsening pain, persistent vomiting or other bothersome symptoms]. Prescriptions: New oseltamivir [Tamiflu] 75 mg capsule 75 mg PO BID 5 Days Qty: 10 0RF amoxicillin 500 mg tablet 1,000 mg PO BID 5 Days Qty: 20 0RF methylprednisolone [Medrol (Kyle)] 4 mg tablets,dose pack See Rx Instructions .ROUTE .COMPLEX Qty: 21 0RF Rx Instructions: orally per package directions azithromycin 250 mg tablet See Rx Instructions .ROUTE .COMPLEX Qty: 6 0RF Rx Instructions: For 250 mg dose pack: take 500 mg today (day 1), then 250 mg for 4 days (days 2-5) guaifenesin [Mucinex] 600 mg tablet extended release 12hr 600 mg PO BID Qty: 14 0RF ondansetron 4 mg tablet,disintegrating 4 mg PO Q8H PRN (Reason: nausea and vomiting) Qty: 10 0RF acetaminophen-codeine 300-30 mg tablet 1 tab PO Q8H PRN (Reason: pain) Qty: 10 0RF No Action prednisone 20 mg tablet 20 mg PO DAILY Qty: 14 0RF Rx Instructions: Take 2 pills for 5 days then 1 pill for 3 days then 1/2 pill for 2 days albuterol sulfate 90 mcg/actuation HFA aerosol inhaler 2 puff inhalation Q6H PRN (Reason: shortness of breath or wheezing) Qty: 6.7 0RF (DME) Aerochamber MV Spacer See Rx Instructions .ROUTE .MEDSUPPLY Qty: 10 0RF Rx Instructions: As directed benzonatate 100 mg capsule 100 mg PO BID PRN (Reason: cough) Qty: 20 0RF CA PANTOTHENATE/FOLIC ACID/VIT (MULTIVITAMIN) 1 tab PO QDAY Qty: 0 cyclobenzaprine 10 mg tablet 10 mg PO TID PRN (Reason: muscle spasm) Qty: 12 0RF ketorolac 10 mg tablet 10 mg PO Q6H PRN (Reason: pain) Qty: 20 0RF oxycodone-acetaminophen [Percocet] 5-325 mg tablet 1 tab PO Q8H PRN (Reason: pain) Qty: 10 0RF lidocaine [Lidoderm] 5 % adhesive patch,medicated 1 patch topical DAILY PRN (Reason: pain) Qty: 15 0RF Rx Instructions: leave on most painful area for up to 12 hrs tramadol 50 mg tablet 50 mg PO DAILY PRN (Reason: pain) Qty: 14 0RF diclofenac sodium 3 % gel 1 applic topical BID PRN (Reason: to right ribs for pain) Qty: 100 0RF methocarbamol 500 mg tablet 500 mg PO Q8H PRN (Reason: muscle pain) Qty: 14 0RF Referrals: Víctor Paul MD [Primary Care Provider] - <Bret Aburto DO - Last Filed: 03/05/22 10:47> Cosign ED Attending Hortensia Attestation: I was immediately available in the department for consultation. This documentation has been reviewed and I agree with assessment and plan. Supervised by Bret Aburto DO
[2022-03-01] MEDS: OSELTAMIVIR 75 MG CAPSULE PO (16:35)
[2022-03-01] MEDS: DEXAMETHASONE 10 MG/ML VIAL IV (16:35)
[2022-03-01] MEDS: AZITHROMYCIN 500 MG in DEXTROSE 5% IN WATER 250 ML 250 MG IV (16:46)
[2022-03-01] MEDS: LACTATED RINGERS 1,572 ML 524 ML IV (16:59)
[2022-03-01 18:04] VITALS: BP 141/75; PULSE 95; RESP 18; TEMP 35.7; O2SAT 97
== END 2022-03-01 18:08 | disposition home or self-care (01) ==
PROVIDERS: Emergency Medicine; Emergency Provider Nurse Practitioner Critical Care Medicine; PCP Family Medicine
DX: A41.9 Sepsis, unspecified organism (principal); J10.00 Influenza due to other identified influenza virus with unspecified type of pneumonia; R00.0 Tachycardia, unspecified; R50.9 Fever, unspecified; R11.10 Vomiting, unspecified; Z20.822 Contact with and (suspected) exposure to COVID-19
CPT/HCPCS: 0241U; 36415; 71046; 71275; 80053; 81001; 83605; 83690; 84145; 85025; 85379; 85610; 85730; 87040; 96361; 96365; 96367; 96375; 99284; J0696; J1100; J1885; J2405; Q9967

== ENCOUNTER 2022-03-03 11:31 | Emergency (ER) | payer SELFPAY ==
[2022-03-03] VITALS (9 sets, daily range): BP systolic 155–179; BP diastolic 78–102; PULSE 75–96; RESP 20; TEMP 36.4; O2SAT 95–99; BMI 53.1
--- NOTE | 2022-03-03 12:03 | DI.RAD.S_ITS ---
PROCEDURE: XR CHEST 1V INDICATIONS: chest pain TECHNIQUE: One view of the chest was acquired. COMPARISON: [facility], CR, XR CHEST 2V, 03/01/2022, 14:10. FINDINGS: Surgical changes and devices: None. Lungs and pleura: Lungs are clear. No pleural effusions or pneumothorax. Mediastinum: Mediastinal contours appear normal. Heart size is normal. Bones and chest wall: No suspicious bony lesions. Overlying soft tissues appear unremarkable. IMPRESSION: No acute cardio pulmonary findings Approved by: Leonard Buckley M.D. on 03/03/2022 at 11:42
[2022-03-03 12:36] LABS: Add Manual Diff / Slide Review NO; Basophils Absolute Auto 0 /uL (0-100); Basophils Percent Auto 0.4 % (0-2); Eosinophils Absolute Auto 0 /uL (0-450); Eosinophils Percent Auto 0.1 % (2-4); Hematocrit 42.3 % (36-46); Lymphocytes Absolute Auto 1900 /uL (1100-4500); Lymphocytes Percent Auto 14.7 % (25-40); Mean Corpuscular HGB Conc 33.1 % (30-36); Mean Corpuscular Hemoglobin 30.7 PG (26-34); Mean Corpuscular Volume 92.5 fL (80-100); Monocytes Absolute Auto 800 /uL (0-900); Monocytes Percent Auto 6.5 % (3-14); Neutrophils Absolute Auto 10200 /uL (1500-7000); Neutrophils Percent Auto 78.3 % (50-75); Platelet Count 216 X10^3/uL (150-400); Red Blood Cell Count 4.58 X10^6/uL (4.0-5.2); Red Cell Distribution Width 13.3 % (11.6-14.8)
[2022-03-03 12:38] LABS: INR 1.2 (0.9-1.3); Prothrombin Time 13.5 SECONDS (10.1-12.7)
[2022-03-03 12:40] LABS: PTT Partial Thromboplastin Tim 25 SECONDS (26-36)
[2022-03-03 12:41] LABS: Alanine Aminotransferase 49 IU/L (<35); Albumin 3.9 g/dL (3.5-5.0); Albumin Globulin Ratio 1.1 (1.0-2.8); Alkaline Phosphatase 90 U/L (38-126); Aspartate Aminotransferase 39 IU/L (14-36); BUN Creatinine Ratio 28.2 (6-22); Bilirubin Total 0.3 mg/dL (0.2-1.3); Blood Urea Nitrogen 11 mg/dL (7-17); Calcium 8.7 mg/dL (8.4-10.2); Carbon Dioxide 22 mmol/L (22-32); Chloride 107 mmol/L (98-107); Creatine Kinase 95 U/L (30-135); Estimated Glomerular Filt Rate > 60 mL/min (>60); Globulin 3.6 g/dL (1.7-4.1); Glucose 150 mg/dL (70-100); HEMOLYSIS < 15 (0-50); Lipase 41 U/L (23-300); Potassium 3.9 mmol/L (3.4-5.1); Sodium 143 mmol/L (137-145); Total Protein 7.5 g/dL (6.3-8.2)
[2022-03-03 12:50] LABS: Troponin I < 0.012 ng/mL (0.01-0.034)
--- NOTE | 2022-03-03 13:34 | ED.CHESTPAIN ---
HPI - Chest Pain General Chief Complaint: Chest Pain Stated Complaint: pneumonia/having bad chest pains Time Seen by Provider: 03/03/22 12:47 History of Present Illness HPI narrative: Patient is a 36-year-old female who was diagnosed with influenza and pneumonia 2 days ago presents today with chest discomfort and some nausea. She had a full workup in the emergency department including blood work and a CT angio she said that at the time she was having some mild hemoptysis. She was then discharged home with Tamiflu amoxicillin azithromycin steroids and Zofran. She says that now she is experiencing some chest discomfort she thought that she was doing pretty good yesterday but today has chest discomfort. Nonradiating kind of a dull ache she is not dizzy or lightheaded. She started feeling nauseous recently but no abdominal pain. She feels like she can take a deep breath she does not feel like she is short of breath. She still just has generalized body aches. Related Data Home Medications Medication Instructions Recorded Confirmed CA PANTOTHENATE/FOLIC ACID/VIT 1 tab PO QDAY ##0 01/07/11 10/13/21 (MULTIVITAMIN) Previous Rx's Medication Instructions Recorded prednisone 20 mg tablet 20 mg PO DAILY #14 tabs 11/14/18 cyclobenzaprine 10 mg tablet 10 mg PO TID PRN muscle spasm #12 12/10/19 tabs ketorolac 10 mg tablet 10 mg PO Q6H PRN pain #20 tabs 07/16/20 oxycodone-acetaminophen 5 mg-325 1 tab PO Q8H PRN pain #10 tabs 08/03/21 mg tablet (Percocet) diclofenac sodium 3 % topical gel 1 applic topical BID PRN to right 08/11/21 ribs for pain #100 grams lidocaine 5 % topical patch 1 patch topical DAILY PRN pain #15 08/11/21 (Lidoderm) ea methocarbamol 500 mg tablet 500 mg PO Q8H PRN muscle pain #14 08/11/21 tabs tramadol 50 mg tablet 50 mg PO DAILY PRN pain #14 tabs 08/11/21 albuterol sulfate 90 mcg/actuation 2 puff inhalation Q6H PRN 10/13/21 aerosol inhaler shortness of breath or wheezing #6.7 grams benzonatate 100 mg capsule 100 mg PO BID PRN cough #20 caps 10/13/21 inhalational spacing device #10 ea 10/13/21 (Aerochamber MV spacer) acetaminophen 300 mg-codeine 30 mg 1 tab PO Q8H PRN pain #10 tabs 03/01/22 tablet amoxicillin 500 mg tablet 1,000 mg PO BID 5 days #20 tabs 03/01/22 azithromycin 250 mg tablet See Rx Instructions PO .COMPLEX #6 03/01/22 tabs guaifenesin 600 mg tablet, 600 mg PO BID #14 tabs 03/01/22 extended release 12 hr (Mucinex) methylprednisolone 4 mg tablets in See Rx Instructions PO .COMPLEX 03/01/22 a dose pack (Medrol (Kyle)) #21 ea ondansetron 4 mg disintegrating 4 mg PO Q8H PRN nausea and 03/01/22 tablet vomiting #10 tabs oseltamivir 75 mg capsule (Tamiflu) 75 mg PO BID 5 days #10 caps 03/01/22 Allergies Allergy/AdvReac Type Severity Reaction Status Date / Time hydrocodone Allergy Hives Verified 03/01/22 13:24 Review of Systems Review of Systems ROS Unobtainable: All systems reviewed & are unremarkable except as noted in HPI and below Patient History Medical History (Updated 03/03/22 @ 15:18 by Sondra Moya DO) Posterior right knee pain Right calf pain Social History Smoking Status: Never smoker Smoking Status: Never smoker alcohol intake frequency: a few times a week Substance Use Type: does not use Exam Initial Vital Signs Initial Vital Signs: Vital Signs Temperature 97.5 F L 03/03/22 11:55 Pulse Rate 96 H 03/03/22 11:55 Respiratory Rate 20 03/03/22 11:55 Blood Pressure 167/102 H 03/03/22 11:55 Pulse Oximetry 99 03/03/22 11:55 Oxygen Delivery Method 03/03/22 11:55 GENERAL: Alert 36-year-old female appears not feel well BMI 53 HEENT: Head atraumatic,EOMI, pupils reactive, face symmetric, moist mucous membranes CARDIOVASCULAR: Regular rate and rhythm without murmurs, rubs or gallops. RESPIRATORY: Breath sounds equal bilaterally, no wheezes rales or rhonchi. ABDOMEN: Soft, nontender. Normoactive bowel sounds all 4 quadrants. No guarding or rebound. EXTREMITIES: Normal range of motion, no clubbing or edema. Neurovascularly intact NEUROLOGICAL: Alert and oriented x4.Normal gait and speech. SKIN: Warm, dry, no laceration, no petechiae, no rashes or lesions. Scores CURB-65 Confusion: No BUN >19mg/dL (>7mmol/L): No Respiratory rate greater or equal to 30: No SBP <90mmHg or DBP less or equal to 60mmHg: No Age 65 or Older: No CURB-65 Total: 0 Score 0-1 Outpatient care, Score 2 Inpt vs. Obs, Score 3 or over Inpt admit with ICU for score of 4-5 Course Orders Ordered: ED Orders 03/03/22 12:03 XR chest 1V Stat 03/03/22 12:04 Complete Blood Count AUTO DIFF Stat Comprehensive Metabolic Panel Stat Lipase Stat Magnesium Stat Partial Thromboplastin Time Stat Prothrombin Time INR Stat Troponin & CK Cardiac Panel Stat 03/03/22 12:07 Procalcitonin Stat Discontinued Medications Sodium Chloride (Normal Saline 0.9%) 1,000 mls @ 1,000 mls/hr IV BOLUS ONE Stop: 03/03/22 14:41 Last Infusion: 03/03/22 15:25 Dose: 0 mls/hr Documented By: Admin: 03/03/22 14:01 Dose: 1,000 mls/hr Documented By: RIDDHI Ketorolac Tromethamine (Ketorolac 30 Mg/Ml Vial) 15 mg IV NOW ONE Stop: 03/03/22 13:43 Last Admin: 03/03/22 14:03 Dose: 15 mg Documented By: RIDDHI Ondansetron HCl (Ondansetron 4 Mg/2 Ml Inj) 4 mg IV NOW ONE Stop: 03/03/22 13:43 Last Admin: 03/03/22 14:00 Dose: Not Given Documented By: RIDDHI Vital Signs Vital signs: Vital Signs - 8 hr 03/03/22 11:55 03/03/22 12:34 03/03/22 12:34 Temperature 97.5 F L Pulse Rate 96 H 87 Respiratory Rate 20 Blood Pressure 167/102 H 163/79 H Pulse Oximetry 99 96 Oxygen Delivery Method Room Air 03/03/22 13:00 03/03/22 13:01 03/03/22 13:01 Temperature Pulse Rate 85 83 Respiratory Rate Blood Pressure 155/78 H Pulse Oximetry 95 97 Oxygen Delivery Method 03/03/22 13:30 03/03/22 14:00 03/03/22 14:30 Temperature Pulse Rate 91 H 91 H 75 Respiratory Rate Blood Pressure Pulse Oximetry 97 98 98 Oxygen Delivery Method 03/03/22 15:00 03/03/22 15:23 03/03/22 15:23 Temperature Pulse Rate 77 82 Respiratory Rate Blood Pressure 179/96 H Pulse Oximetry 98 97 Oxygen Delivery Method MDM - Chest Pain Lab Data Result diagrams: 03/03/22 12:04 03/03/22 12:04 Labs: Lab Results 03/03/22 03/03/22 03/03/22 Range/Units 12:04 12:04 12:04 WBC 13.0 H (4.5-11.0) X10^3/uL RBC 4.58 (4.0-5.2) X10^6/uL Hgb 14.0 (12.0-16.0) g/dL Hct 42.3 (36-46) % MCV 92.5 (80-100) fL MCH 30.7 (26-34) PG MCHC 33.1 (30-36) % RDW 13.3 (11.6-14.8) % Plt Count 216 (150-400) X10^3/uL Neut % (Auto) 78.3 H (50-75) % Lymph % (Auto) 14.7 L (25-40) % [place] % (Auto) 6.5 (3-14) % Eos % (Auto) 0.1 L (2-4) % Baso % (Auto) 0.4 (0-2) % Neut # (Auto) 12466 H (5936-9780) /uL Lymph # (Auto) 1900 (5782-1557) /uL [place] # (Auto) 800 (0-900) /uL Eos # (Auto) 0 (0-450) /uL Baso # (Auto) 0 (0-100) /uL PT 13.5 H (10.1-12.7) SECONDS INR 1.2 (0.9-1.3) APTT 25 L (26-36) SECONDS Sodium 143 (137-145) mmol/L Potassium 3.9 (3.4-5.1) mmol/L Chloride 107 (98-107) mmol/L Carbon Dioxide 22 (22-32) mmol/L BUN 11 (7-17) mg/dL Creatinine 0.39 L (0.52-1.04) mg/dL Estimated GFR > 60 (>60) mL/min BUN/Creatinine Ratio 28.2 H (6-22) Glucose 150 H (70-100) mg/dL Calcium 8.7 (8.4-10.2) mg/dL Magnesium 2.0 (1.6-2.3) mg/dL Total Bilirubin 0.3 (0.2-1.3) mg/dL AST 39 H (14-36) IU/L ALT 49 H (<35) IU/L Alkaline Phosphatase 90 (38-126) U/L Total Creatine Kinase 95 (30-135) U/L CK-MB (CK-2) TNP CK-MB (CK-2) Rel Index TNP Troponin I < 0.012 (0.01-0.034) ng/mL Total Protein 7.5 (6.3-8.2) g/dL Albumin 3.9 (3.5-5.0) g/dL Globulin 3.6 (1.7-4.1) g/dL Albumin/Globulin Ratio 1.1 (1.0-2.8) Lipase 41 (23-300) U/L Procalcitonin (<0.5) ng/mL 03/03/22 Range/Units 12:07 WBC (4.5-11.0) X10^3/uL RBC (4.0-5.2) X10^6/uL Hgb (12.0-16.0) g/dL Hct (36-46) % MCV (80-100) fL MCH (26-34) PG MCHC (30-36) % RDW (11.6-14.8) % Plt Count (150-400) X10^3/uL Neut % (Auto) (50-75) % Lymph % (Auto) (25-40) % [place] % (Auto) (3-14) % Eos % (Auto) (2-4) % Baso % (Auto) (0-2) % Neut # (Auto) (1864-8560) /uL Lymph # (Auto) (0251-2096) /uL [place] # (Auto) (0-900) /uL Eos # (Auto) (0-450) /uL Baso # (Auto) (0-100) /uL PT (10.1-12.7) SECONDS INR (0.9-1.3) APTT (26-36) SECONDS Sodium (137-145) mmol/L Potassium (3.4-5.1) mmol/L Chloride (98-107) mmol/L Carbon Dioxide (22-32) mmol/L BUN (7-17) mg/dL Creatinine (0.52-1.04) mg/dL Estimated GFR (>60) mL/min BUN/Creatinine Ratio (6-22) Glucose (70-100) mg/dL Calcium (8.4-10.2) mg/dL Magnesium (1.6-2.3) mg/dL Total Bilirubin (0.2-1.3) mg/dL AST (14-36) IU/L ALT (<35) IU/L Alkaline Phosphatase (38-126) U/L Total Creatine Kinase (30-135) U/L CK-MB (CK-2) CK-MB (CK-2) Rel Index Troponin I (0.01-0.034) ng/mL Total Protein (6.3-8.2) g/dL Albumin (3.5-5.0) g/dL Globulin (1.7-4.1) g/dL Albumin/Globulin Ratio (1.0-2.8) Lipase (23-300) U/L Procalcitonin 0.20 (<0.5) ng/mL Imaging Data Chest x-ray: Radiologist's Impression: Signed Patient: Katherine Medellin MR#: [id number] : 1985 Acct:[id number] Age/Sex: 36 / F Date of Service: 03/03/22 Loc: ED Accession Number: [id number] ?? Procedure: XR chest 1V Ordering Provider: Sondra Moya D.O. PROCEDURE:? XR CHEST 1V ? INDICATIONS:? chest pain ? TECHNIQUE:? One view of the chest was acquired.? ? COMPARISON:? [facility], CR, XR CHEST 2V, 03/01/2022, 14:10. ? FINDINGS:? ? Surgical changes and devices:? None.? ? Lungs and pleura:? Lungs are clear.? No pleural effusions or pneumothorax.? ? Mediastinum:? Mediastinal contours appear normal.? Heart size is normal.? ? Bones and chest wall:? No suspicious bony lesions.? Overlying soft tissues appear unremarkable.? ? IMPRESSION:? No acute cardio pulmonary findings ? ? ? Approved by: Leonard Buckley M.D. on 03/03/2022 at 11:42 ECG Data Interpretation: Normal sinus rhythm rate 94 MA interval 116 QRS [address] changes T-wave inversion noted in lead 3 only no priors to compare MDM Narrative Medical decision making narrative: Patient 36-year-old female presents today with chest discomfort. She is known influenza and pneumonia now feeling a little bit worse. X-ray does not show any worsening pneumonia EKG does not show any acute changes T-wave inversion only noted but no priors to compare troponin is negative. She denies any shortness of breath she would a CT angio 2 days ago at this time does not need to be repeated. She is likely having some chest discomfort secondary to her infections. Nausea can certainly be caused from Tamiflu. At this time I really see no benefit in adding Tamiflu. I think that stopping the Tamiflu may actually help some of her symptoms. She has mild increase in leukocytosis now 13 previously 12 however she is not febrile tachycardic or hypotensive no other signs of sepsis at this time. She is given IV fluids Toradol and Zofran overall feeling better and can be discharged home to finish her antibiotics and supportive care only. Patient has a minimal elevation in procalcitonin today of 0.2. At this time still recommend outpatient treatment with amoxicillin and azithromycin, seeing as though curb 65 score is still 0. Stop taking Tamiflu may be causing some of symptoms.. Discharge Plan Departure Patient Disposition: Home Clinical Impression: Pneumonia and influenza Instructions: DI for Pneumonia -- Adult, DI for Influenza -- Adult Activity Restrictions/Additional Instructions: *You have been diagnosed with pneumonia and influenza *What to do: At this time blood work but looks relatively stable x-ray is clear. I recommend continuing your antibiotic you do not need to stay in the hospital at this time. *Continue to take medications as directed Stop taking Tamiflu it might be causing some of her symptoms Please finish amoxicillin and azithromycin as previously prescribed Mucinex as needed for cough *Follow up with your primary care provider in 2-3 days or call [phone] *Return to ER if you should have increasing chest pain shortness of breath not tolerating fluids or any new, worsening or concerning symptoms Prescriptions: No Action prednisone 20 mg tablet 20 mg PO DAILY Qty: 14 0RF Rx Instructions: Take 2 pills for 5 days then 1 pill for 3 days then 1/2 pill for 2 days albuterol sulfate 90 mcg/actuation HFA aerosol inhaler 2 puff inhalation Q6H PRN (Reason: shortness of breath or wheezing) Qty: 6.7 0RF (DME) Aerochamber MV Spacer See Rx Instructions .ROUTE .MEDSUPPLY Qty: 10 0RF Rx Instructions: As directed benzonatate 100 mg capsule 100 mg PO BID PRN (Reason: cough) Qty: 20 0RF CA PANTOTHENATE/FOLIC ACID/VIT (MULTIVITAMIN) 1 tab PO QDAY Qty: 0 oseltamivir [Tamiflu] 75 mg capsule 75 mg PO BID 5 Days Qty: 10 0RF amoxicillin 500 mg tablet 1,000 mg PO BID 5 Days Qty: 20 0RF methylprednisolone [Medrol (Kyle)] 4 mg tablets,dose pack See Rx Instructions .ROUTE .COMPLEX Qty: 21 0RF Rx Instructions: orally per package directions azithromycin 250 mg tablet See Rx Instructions .ROUTE .COMPLEX Qty: 6 0RF Rx Instructions: For 250 mg dose pack: take 500 mg today (day 1), then 250 mg for 4 days (days 2-5) guaifenesin [Mucinex] 600 mg tablet extended release 12hr 600 mg PO BID Qty: 14 0RF ondansetron 4 mg tablet,disintegrating 4 mg PO Q8H PRN (Reason: nausea and vomiting) Qty: 10 0RF acetaminophen-codeine 300-30 mg tablet 1 tab PO Q8H PRN (Reason: pain) Qty: 10 0RF cyclobenzaprine 10 mg tablet 10 mg PO TID PRN (Reason: muscle spasm) Qty: 12 0RF ketorolac 10 mg tablet 10 mg PO Q6H PRN (Reason: pain) Qty: 20 0RF oxycodone-acetaminophen [Percocet] 5-325 mg tablet 1 tab PO Q8H PRN (Reason: pain) Qty: 10 0RF lidocaine [Lidoderm] 5 % adhesive patch,medicated 1 patch topical DAILY PRN (Reason: pain) Qty: 15 0RF Rx Instructions: leave on most painful area for up to 12 hrs tramadol 50 mg tablet 50 mg PO DAILY PRN (Reason: pain) Qty: 14 0RF diclofenac sodium 3 % gel 1 applic topical BID PRN (Reason: to right ribs for pain) Qty: 100 0RF methocarbamol 500 mg tablet 500 mg PO Q8H PRN (Reason: muscle pain) Qty: 14 0RF Referrals: Víctor Paul MD [Primary Care Provider] -
[2022-03-03] MEDS: SODIUM CHLORIDE 0.9% 1,000 ML 1000 ML IV (14:01)
[2022-03-03] MEDS: KETOROLAC 30 MG/ML VIAL 15 MG IV (14:03)
== END 2022-03-03 15:28 | disposition home or self-care (01) ==
PROVIDERS: Emergency Provider Emergency Medicine; PCP Family Medicine
DX: J10.00 Influenza due to other identified influenza virus with unspecified type of pneumonia (principal); R11.0 Nausea; R07.9 Chest pain, unspecified
CPT/HCPCS: 36415; 71045; 80053; 82550; 83690; 83735; 84145; 84484; 85025; 85610; 85730; 93005; 96361; 96374; 99284; J1885

== ENCOUNTER → 2022-05-29 17:46 | Outpatient (ROUT) | payer SELFPAY ==
[2022-05-29 18:31] LABS: Influenza A - CEPHEID Flu A NEGATIVE (NEGATIVE); Influenza B - CEPHEID Flu B NEGATIVE (NEGATIVE); Respiratory Syncytial Virus Negative (Negative)
[2022-05-29 18:57] LABS: COVID-19 CEPHEID 4-PLEX PCR Negative (Negative)
== END ==
PROVIDERS: PCP Family Medicine; Visit Provider Family Medicine
DX: Z20.822 Contact with and (suspected) exposure to COVID-19 (principal)
CPT/HCPCS: 0241U

== ENCOUNTER 2022-09-07 09:58 | Emergency (ER) | payer SELFPAY ==
[2022-09-07 10:07] VITALS: BP 168/78; PULSE 100; RESP 20; TEMP 37.1; O2SAT 100; BMI 50.6
--- NOTE | 2022-09-07 10:26 | DI.RAD.S_ITS ---
PROCEDURE: XR RIBS RT MIN 3V W CXR 1V INDICATIONS: pain TECHNIQUE: 2 views of the right ribs were acquired, along with a single view chest. COMPARISON: [facility], CR, XR RIBS RT MIN 3V W CXR 1V, 08/03/2021, 9:07. FINDINGS: Surgical changes and devices: None. Bones and chest wall: No fractures or dislocations. No suspicious bony lesions. Overlying soft tissues appear unremarkable. Lungs and pleura: No pleural effusions or pneumothorax. Lungs appear clear. Mediastinum: Mediastinal contours appear normal. Heart size is normal. IMPRESSION: No rib fracture identified. No acute cardiopulmonary abnormality. Dictated by: Loco Israel M.D. on 09/07/2022 at 11:33 Approved by: Loco Israel M.D. on 09/07/2022 at 11:34
[2022-09-07] MEDS: KETOROLAC 30 MG/ML VIAL IM (10:30)
--- NOTE | 2022-09-07 10:52 | ED.BACK ---
HPI - Back Pain/Injury General Chief Complaint: Back Pain/Injury Stated Complaint: Rib pain since the 4th Time Seen by Provider: 09/07/22 10:25 Source: patient History of Present Illness HPI Narrative: Patient 37-year-old female history of hypertension presents today with right-sided rib pain. She reports that she was playing very intense to the evolving with her 11-year-old on September 03 she hit the ball immediately afterward had intense pain all down her side. It has not yet gone away. It is worse with breathing and movement. Related Data Previous Rx's Medication Instructions Recorded prednisone 20 mg tablet 20 mg PO DAILY #14 tabs 11/14/18 ketorolac 10 mg tablet 10 mg PO Q6H PRN pain #20 tabs 07/16/20 oxycodone-acetaminophen 5 mg-325 1 tab PO Q8H PRN pain #10 tabs 08/03/21 mg tablet (Percocet) lidocaine 5 % topical patch 1 patch topical DAILY PRN pain #15 08/11/21 (Lidoderm) ea methocarbamol 500 mg tablet 500 mg PO Q8H PRN muscle pain #14 08/11/21 tabs tramadol 50 mg tablet 50 mg PO DAILY PRN pain #14 tabs 08/11/21 albuterol sulfate 90 mcg/actuation 2 puff inhalation Q6H PRN 10/13/21 aerosol inhaler shortness of breath or wheezing #6.7 grams inhalational spacing device #10 ea 10/13/21 (Aerochamber MV spacer) guaifenesin 600 mg tablet, 600 mg PO BID #14 tabs 03/01/22 extended release 12 hr (Mucinex) methylprednisolone 4 mg tablets in See Rx Instructions PO .COMPLEX 03/01/22 a dose pack (Medrol (Kyle)) #21 ea ondansetron 4 mg disintegrating 4 mg PO Q8H PRN nausea and 03/01/22 tablet vomiting #10 tabs acetaminophen 300 mg-codeine 15 mg 1 tab PO QID PRN pain #14 tabs 09/07/22 tablet cyclobenzaprine 5 mg tablet 5 mg PO TID PRN muscle spasm #10 09/07/22 tabs meloxicam 15 mg tablet 15 mg PO DAILY PRN pain #20 tabs 09/07/22 Allergies Allergy/AdvReac Type Severity Reaction Status Date / Time acetaminophen [From Vicodin] Allergy Hives Verified 09/07/22 10:31 hydrocodone Allergy Hives Verified 09/07/22 10:31 oxycodone [From Percocet] Allergy ITCHING Verified 09/07/22 10:31 Review of Systems Review of Systems ROS Unobtainable: All systems reviewed & are unremarkable except as noted in HPI and below Patient History Medical History (Updated 09/07/22 @ 13:13 by Sondra Moya DO) Posterior right knee pain Right calf pain Social History Smoking Status: Never smoker Smoking Status: Never smoker alcohol intake frequency: a few times a week Substance Use Type: does not use Exam Initial Vital Signs Initial Vital Signs: Vital Signs Temperature 98.7 F 09/07/22 10:07 Pulse Rate 100 H 09/07/22 10:07 Respiratory Rate 20 09/07/22 10:07 Blood Pressure 168/78 H 09/07/22 10:07 Pulse Oximetry 100 09/07/22 10:07 Oxygen Delivery Method Room Air 09/07/22 10:07 GENERAL: Alert 37-year-old female and in no acute distress. HEENT: Head atraumatic,EOMI, pupils reactive, face symmetric, moist mucous membranes CARDIOVASCULAR: Regular rate and rhythm without murmurs, rubs or gallops. RESPIRATORY: Breath sounds equal bilaterally, no wheezes rales or rhonchi. Pain reproducible with palpation along right side no contusion no rash paradoxical movement ABDOMEN: Soft, nontender. Normoactive bowel sounds all 4 quadrants. No guarding or rebound. EXTREMITIES: Normal range of motion, no clubbing or edema. Neurovascularly intact NEUROLOGICAL: Alert and oriented x4. SKIN: Warm, dry, no laceration, no petechiae, no rashes or lesions. Course Orders Ordered: ED Orders 09/07/22 10:26 XR ribs RT min 3V w CXR1V Stat Discontinued Medications Ketorolac Tromethamine (Ketorolac 30 Mg/Ml Vial) 30 mg IM NOW ONE Stop: 09/07/22 10:27 Last Admin: 09/07/22 10:30 Dose: 30 mg Documented By: RIDDHI Vital Signs Vital signs: Vital Signs - 8 hr 09/07/22 10:07 09/07/22 12:58 09/07/22 13:21 Temperature 98.7 F Pulse Rate 100 H 88 85 Respiratory Rate 20 Blood Pressure 168/78 H 146/65 H 138/71 Pulse Oximetry 100 100 99 Oxygen Delivery Method Room Air Room Air Room Air MDM - Back Pain/Injury Imaging Data Extremity x-ray #1: Radiologist's Impression: PROCEDURE:? XR RIBS RT MIN 3V W CXR 1V ? INDICATIONS:? pain ? TECHNIQUE:? 2 views of the right ribs were acquired, along with a single view chest.? ? COMPARISON:? [facility], CR, XR RIBS RT MIN 3V W CXR 1V, 08/03/2021, 9:07. ? FINDINGS:? ? Surgical changes and devices:? None.? ? Bones and chest wall:? No fractures or dislocations.? No suspicious bony lesions.? Overlying soft tissues appear unremarkable.? ? Lungs and pleura:? No pleural effusions or pneumothorax.? Lungs appear clear.? ? Mediastinum:? Mediastinal contours appear normal.? Heart size is normal.? ? IMPRESSION:? No rib fracture identified.? No acute cardiopulmonary abnormality. ? ? ? Dictated by: Loco Israel M.D. on 09/07/2022 at 11:33 ? ? Approved by: Loco Israel M.D. on 09/07/2022 at 11:34 ? [facility] Narrative Medical decision making narrative: Patient 77-year-old female who presents today with right-sided rib pain. Sounds as though musculoskeletal with history of playing tetherball her to move and breathe. X-rays negative for fracture. She has not taken Tylenol or ibuprofen at home she says it does not really work for her but she did actually get a bit of relief with the Toradol. No need for any further workup supportive care only. She also reports significant allergy to [place] and Percocet causing rashes. Discharge Plan Departure Patient Disposition: Home Clinical Impression: Contusion of rib on right side Instructions: DI for Rib Contusion Activity Restrictions/Additional Instructions: *You have been diagnosed with rib contusion *What to do: At this time no evidence of fracture *Continue to take medications as directed Tylenol with codeine every 6 hours if needed for severe pain Meloxicam 15 mg once a day if needed for hryp-vs-pivjqzcc pain Flexeril 5 mg every 8 hours if needed for bazp-jp-mgnbylkc spasm *Follow up with your primary care provider in 2-3 days or call [phone] *Return to ER if you should have increased pain shortness of breath or any new, worsening or concerning symptoms CONTROLLED SUBSTANCE DISCHARGE (Narcotoic/benzodiazepine/Flexeril/Phenergan) 1. You have been prescribed narcotic medications, it does have acetaminophen/Tylenol/paracetamol in it, DO NOT TAKE MORE THAN 4,00mg in 24 hours of Tylenol. TRAMADOL DOES NOT CONTAIN TYLENOL 2. Please understand that we cannot provide further refills of narcotics, benzodiazepines or controlled substances through the ED and her pain management will need to be through your provider. 3. While on these medications you cannot drive or operate heavy machinery. 4. You cannot sign legal documents or perform any duties such as this. 5. As long as you're taking opiate pain medications he should also be taking a stool softener such as Colace, Dulcolax, MiraLAX or prune juice, to help avoid constipation. Prescriptions: New meloxicam 15 mg tablet 15 mg PO DAILY PRN (Reason: pain) Qty: 20 0RF acetaminophen-codeine 300-15 mg tablet 1 tab PO QID PRN (Reason: pain) Qty: 14 0RF cyclobenzaprine 5 mg tablet 5 mg PO TID PRN (Reason: muscle spasm) Qty: 10 0RF No Action prednisone 20 mg tablet 20 mg PO DAILY Qty: 14 0RF Rx Instructions: Take 2 pills for 5 days then 1 pill for 3 days then 1/2 pill for 2 days albuterol sulfate 90 mcg/actuation HFA aerosol inhaler 2 puff inhalation Q6H PRN (Reason: shortness of breath or wheezing) Qty: 6.7 0RF (DME) Aerochamber MV Spacer See Rx Instructions .ROUTE .MEDSUPPLY Qty: 10 0RF Rx Instructions: As directed methylprednisolone [Medrol (Kyle)] 4 mg tablets,dose pack See Rx Instructions .ROUTE .COMPLEX Qty: 21 0RF Rx Instructions: orally per package directions guaifenesin [Mucinex] 600 mg tablet extended release 12hr 600 mg PO BID Qty: 14 0RF ondansetron 4 mg tablet,disintegrating 4 mg PO Q8H PRN (Reason: nausea and vomiting) Qty: 10 0RF ketorolac 10 mg tablet 10 mg PO Q6H PRN (Reason: pain) Qty: 20 0RF oxycodone-acetaminophen [Percocet] 5-325 mg tablet 1 tab PO Q8H PRN (Reason: pain) Qty: 10 0RF lidocaine [Lidoderm] 5 % adhesive patch,medicated 1 patch topical DAILY PRN (Reason: pain) Qty: 15 0RF Rx Instructions: leave on most painful area for up to 12 hrs tramadol 50 mg tablet 50 mg PO DAILY PRN (Reason: pain) Qty: 14 0RF methocarbamol 500 mg tablet 500 mg PO Q8H PRN (Reason: muscle pain) Qty: 14 0RF Referrals: Víctor Paul MD [Primary Care Provider] - Stand Alone Forms: Patient Portal/API
[2022-09-07 12:58] VITALS: BP 146/65; PULSE 88; O2SAT 100
[2022-09-07 13:21] VITALS: BP 138/71; PULSE 85; O2SAT 99
== END 2022-09-07 13:22 | disposition home or self-care (01) ==
PROVIDERS: Emergency Provider Emergency Medicine; PCP Family Medicine
DX: S20.211A Contusion of right front wall of thorax, initial encounter (principal); Y93.79 Activity, other specified sports and athletics
CPT/HCPCS: 71101; 96372; 99283; J1885

== ENCOUNTER → 2022-12-12 11:36 | Outpatient (CLI) | payer SELFPAY ==
--- NOTE | 2022-12-12 | DI.RAD.S_ITS ---
PROCEDURE: XR KNEE LT 1TO2V INDICATIONS: PAIN LT KNEE TECHNIQUE: Two views of the left knee were obtained COMPARISON: None. FINDINGS: Bones: No fractures or dislocations. No suspicious bony lesions. Bilateral medial compartment moderate joint space narrowing. Soft tissues: No joint effusion. No suspicious soft tissue calcifications. IMPRESSION: Bilateral moderate medial compartment joint space narrowing. No joint effusion Approved by: Leonard Buckley M.D. on 12/12/2022 at 14:39
== END ==
PROVIDERS: PCP Family Medicine; Referring Provider Registered Nurse; Visit Provider Registered Nurse
DX: M25.562 Pain in left knee (principal)
CPT/HCPCS: 73560

== ENCOUNTER → 2023-08-18 09:43 | Outpatient (CLI) | payer OTHER, SELFPAY ==
--- NOTE | 2023-08-18 09:45 | DI.US.S_ITS ---
PROCEDURE: US THYROID INDICATIONS: Foreign body sensation, throat TECHNIQUE: Real-time scanning was performed of the thyroid gland, with image documentation. COMPARISON: None. FINDINGS: Thyroid: Right lobe measures 4.5 x 2.2 x 1.9 cm. Left lobe measures 4.0 x 2.1 x 1.9 cm. Isthmus is 5 cm thick. Echotexture is homogeneous. No reportable thyroid nodules. Subcentimeter scattered lymph nodes are present. IMPRESSION: No reportable thyroid nodules. No adenopathy. Dictated by: Delmy Robles M.D. on 08/18/2023 at 16:59 Approved by: Delmy Robles M.D. on 08/18/2023 at 17:00
== END ==
PROVIDERS: PCP Family Medicine; Referring Provider Otolaryngology; Visit Provider Otolaryngology
DX: R09.A2 Foreign body sensation, throat (principal)
CPT/HCPCS: 76536

== ENCOUNTER → 2023-10-10 13:33 | Outpatient (CLI) | payer OTHER, SELFPAY ==
--- NOTE | 2023-10-10 13:35 | DI.US.S_ITS ---
LIMITED ULTRASOUND OF RIGHT BREAST: 10/10/2023 CLINICAL: Palpable right breast lump. Comparison is made to exams dated: 10/10/2023 mammogram, 02/19/2019 mammogram, 05/26/2017 ultrasound, and 05/26/2017 mammogram - [facility]. Color flow and real-time ultrasound of the right breast 11 o'clock region were performed. Gilliland scale images of the real-time examination were reviewed. No significant abnormalities were seen sonographically in the right breast. IMPRESSION: NEGATIVE There is no sonographic evidence of malignancy. There is no abnormality seen in the right breast to correspond with the palpable abnormality, however, clinical followup is recommended. A 2 year screening mammogram is recommended. This exam was interpreted at Station ID: [id number]. Electronically Signed By: Rambo Kay M.D. ar/:10/10/2023 21:32:11 letter sent: Clinical Evaluation Ultrasound BI-RADS: 1 Negative
--- NOTE | 2023-10-10 13:35 | DI.MG.S_ITS ---
BILATERAL DIGITAL DIAGNOSTIC MAMMOGRAM 3D/2D: 10/10/2023 CLINICAL: Palpable right breast lump. Comparison is made to exams dated: 02/19/2019 mammogram and 05/26/2017 mammogram - [facility]. There are scattered areas of fibroglandular density in both breasts (category b / 25%-50% glandular tissue). No significant masses, calcifications, or other findings are seen in either breast. IMPRESSION: INCOMPLETE: NEEDS ADDITIONAL IMAGING EVALUATION There is no abnormality seen in the right breast to correspond with the palpable abnormality. Targeted ultrasound is recommended for further evaluation, which will be performed immediately following this exam. Based on the Tyrer Cuzick model (a risk assessment model) the patient's lifetime risk is 13.8% and her 10 year risk is 1.4%. According to the ACR, ACS, and NCCN guidelines, an annual breast MRI exam along with mammogram is recommended if the patient's lifetime risk is 20% or greater. This exam was interpreted at Station ID: [id number]. NOTE: For mammograms, a report in lay terms will be sent to the patient. Approximately 15% of breast malignancies will not be visualized mammographically. In the management of a palpable breast mass, a negative mammogram must not discourage biopsy of a clinically suspicious lesion. Electronically Signed By: Rambo Kay M.D. ar/:10/10/2023 21:29:27 ACR BI-RADS Category 0: Incomplete [id number]
== END ==
LOC: MAMMO 13:34
PROVIDERS: PCP Family Medicine; Referring Provider Family Medicine; Visit Provider Family Medicine
DX: R92.2 Inconclusive mammogram (principal); N63.10 Unspecified lump in the right breast, unspecified quadrant; R92.323 Mammographic fibroglandular density, bilateral breasts
CPT/HCPCS: 76642; 77066; G0279

== ENCOUNTER → 2023-12-29 12:48 | Outpatient (CLI) | payer OTHER, SELFPAY ==
--- NOTE | 2023-12-29 12:49 | DI.US.S_ITS ---
PROCEDURE: US ABDOMEN LIMITED INDICATIONS: CHEST PAIN / BULGE AT RIBCAGE TECHNIQUE: Real-time focused scanning was performed of the abdomen, with image documentation. Color Doppler was also utilized. COMPARISON: Prior imaging is not available for review from the archive at the time of this dictation. FINDINGS: Scan is performed at the area of clinical concern, adjacent to the inferior ribs on the left. No sonographic abnormalities can be seen. No abnormal vascular can be seen IMPRESSION: No ultrasound abnormality can be seen at the site of clinical concern. Dictated by: Jam Mistry M.D. on 12/29/2023 at 13:21 Approved by: Jam Mistry M.D. on 12/29/2023 at 13:23
== END ==
LOC: US 12:49
PROVIDERS: PCP Family Medicine; Referring Provider Family Medicine; Visit Provider Family Medicine
DX: R07.89 Other chest pain (principal)
CPT/HCPCS: 76705

== ENCOUNTER → 2024-01-23 11:09 | Outpatient (CLI) | payer OTHER, SELFPAY ==
--- NOTE | 2024-01-23 11:10 | DI.MRI.S_ITS ---
PROCEDURE: MR HAND RT WO/W CON INDICATIONS: RT HAND PAIN,NUMBNESS AND TINGLING TECHNIQUE: Noncontrast coronal T1 spin echo and T2 fast spin echo with fat saturation, axial proton density fast spin echo and T2 fast spin echo with fat saturation, axial T1 spin echo with fat saturation, sagittal T1 spin echo and STIR through the hand and fingers. Post-contrast axial, coronal, and sagittal T1 spin echo through the hand and fingers. COMPARISON: None. FINDINGS: Image quality: Excellent. Bones: The bones are normally aligned, without marrow contusions or fractures. No intra-osseous lesions. Interphalangeal joint(s): The accessory and proper collateral ligaments appear intact. The volar plate demonstrates normal morphology. The extensor central slips appear intact on sagittal images. Metacarpophalangeal joint(s): The accessory and proper collateral ligaments appear intact, as well as the volar plate and adjacent deep transverse metacarpal ligaments. The sagittal bands of the extensor whaley appear normal. Extensor apparatus: The central slips insert normally on the middle phalangeal base. The conjoint and terminal tendons insert normally on the distal phalangeal bases. More proximal portions of the extensor tendons also appear normal. Flexor apparatus: The flexor digitorum superficialis and profundus tendons both appear intact. All annular and cruciform pulleys appear intact, without adjacent soft tissue edema. Soft tissues: Visualized muscles demonstrate normal bulk and internal signal. No intramuscular masses identified. 7 mm ganglion cyst (series 6, image 9) immediately volar to the hamate and capitate articulation, deep to the carpal tunnels. 8 mm ganglion cyst (06:14) in the superficial soft tissue of the volar, radial aspect of the wrist. IMPRESSION: 1. 7 mm ganglion cyst volar to the hamate and capitate articulation. 2. 8 mm ganglion cyst in the superficial soft tissue of the volar, radial aspect of the wrist. Dictated by: Enedina Davidson M.D. on 01/23/2024 at 14:34 Approved by: Enedina Davidson M.D. on 01/23/2024 at 14:44
== END ==
PROVIDERS: PCP Family Medicine; Referring Provider Physician Assistant Surgical; Visit Provider Physician Assistant Surgical
DX: M67.441 Ganglion, right hand (principal); M67.431 Ganglion, right wrist; M79.641 Pain in right hand; R20.0 Anesthesia of skin; R20.2 Paresthesia of skin
CPT/HCPCS: 73220; A9579

== ENCOUNTER → 2024-03-11 12:38 | Outpatient (CLI) | payer SELFPAY | PROVIDERS: Family Provider Family Medicine; PCP Family Medicine; Referring Provider Physician Assistant Surgical; Visit Provider Physician Assistant Surgical | DX: M79.641 Pain in right hand (principal); R20.0 Anesthesia of skin; R20.2 Paresthesia of skin | CPT/HCPCS: 95885; 95886; 95913 ==

== ENCOUNTER 2024-09-13 08:37 | Emergency (ER) | payer OTHER, SELFPAY ==
[2024-09-13 08:50] VITALS: BP 144/94; PULSE 99; RESP 16; TEMP 36.5; O2SAT 99; BMI 51.5
--- NOTE | 2024-09-13 09:00 | DI.RAD.S_ITS ---
PROCEDURE: XR RIBS LT MIN 3V W CXR1V INDICATIONS: possible broken rib TECHNIQUE: To views of the ribs were acquired, along with a single view chest. COMPARISON: None. FINDINGS: Surgical changes and devices: None. Bones and chest wall: No fractures or dislocations. No suspicious bony lesions. Overlying soft tissues appear unremarkable. Lungs and pleura: No pleural effusions or pneumothorax. Lungs appear clear. Mediastinum: Mediastinal contours appear normal. Heart size is normal. IMPRESSION: No displaced left rib fractures or pneumothorax. Dictated by: Shahid Smith M.D. on 09/13/2024 at 8:47 Approved by: Shahid Smith M.D. on 09/13/2024 at 8:47
--- NOTE | 2024-09-13 11:28 | ED_ITS ---
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 No other symptoms. Related Data Previous Rx's ?Medication ?Instructions ?Recorded prednisone 20 mg tablet 20 mg PO DAILY #14 tabs 11/01 06/19 ketorolac 10 mg tablet 10 mg PO Q6H PRN pain #20 ta bs 07/16/20 oxycodone-acetaminophen 5 mg-325 1 tab PO Q8H PRN pain #10 tabs 08/03/21 mg tablet (Percocet) lidocaine 5 % topical patch 1 patch topical DAILY PRN pain #15 08/11/21 (Lidoderm) ea methocarbamol 500 mg tablet 500 mg PO Q8H PRN muscle p ain #14 08/11/21 tabs tramadol 50 mg tablet 50 mg PO DAILY PRN pain #14 tabs 08/11/21 albuterol sulfate 90 mcg/actuation 2 puff inhalation Q 6H PRN 10/13/21 aerosol inhaler shortness of breath or wheez ing #6.7 grams inhalational spacing device #10 ea 10/13/21 (Aerochamber MV spacer) guaifenesin 600 mg tablet, 600 mg PO BID #14 tabs 02/02 extended release 12 hr (Mucinex) methylprednisolone 4 mg tablets in See Rx Instructions PO .COMPLEX 03/01/22 a dose pack (Medrol (Kyle)) #21 ea ondansetron 4 mg disintegrating 4 mg PO Q8H PRN nausea and 03/01/22 tablet vomiting #10 tabs acetaminophen 300 mg-codeine 15 mg 1 tab PO QID PRN pa in #14 tabs 09/07/22 tablet cyclobenzaprine 5 mg tablet 5 mg PO TID PRN muscle spa sm #10 09/07/22 tabs meloxicam 15 mg tablet 15 mg PO DAILY PRN pain #20 tabs 09/07/22 cyclobenzaprine 10 mg tablet 10 mg PO TID PRN muscle s pasm #21 09/13/24 tabs Allergies Allergy/AdvReac Type Severity Reaction Status Date / Time hydrocodone Allergy Hives Verified 09/13/24 08:51 Review of Systems Review of Systems ROS Unobtainable: All systems reviewed & are unremarkable except as noted in HPI and below Patient History Medical History (Updated 09/13/24 @ 11:30 by Aniceto Vaca MD) Posterior right knee pain Right calf pain Social History Smoking Status: Never smoker Smoking Status: Never smoker alcohol intake frequency: a few times a week Exam Initial Vital Signs Initial Vital Signs: Vital Signs Temperature 97.7 F 09/13/24 08:50 Pulse Rate 99 H 09/13/24 08:50 Respiratory Rate 16 09/13/24 08:50 Blood Pressure 144/94 H 09/13/24 08:50 Pulse Oximetry 99 09/13/24 08:50 Oxygen Delivery Method Room Air 09/13/24 08:50 General: Healthy appearing, in no acute distress. Able to give a complete and coherent history. Well-nourished well-developed HEENT: Moist mucous membranes, normal sclera with reactive pupils, Neck: No JVD, supple Respiratory: Lungs are clear to auscultation, no wheezing no rales no rhonchi. Full and symmetrical air movement Cardiac: Regular rate and rhythm no murmurs no bruits, pain with palpation underneath left breast area Abdomen: Soft, nontender, no rebound or guarding, no flank pain Skin: Warm and dry, no rashes Neurologic: Grossly neurologically intact with no obvious asymmetries or abnormalities Extremities: No trauma, well perfused Psych: Cooperative, appropriate insight and affect Course Orders Ordered: ED Orders 09/13/24 09:00 XR ribs LT min 3V w CXR1V Stat Vital Signs Vital signs: Vital Signs - 8 hr 09/13/24 08:50 Temperature 97.7 F Pulse Rate 99 H Respiratory Rate 16 Blood Pressure 144/94 H Pulse Oximetry 99 Oxygen Delivery Method Room Air MDM - Chest Pain Differential Diagnosis Differential diagnosis: Likely fracture of rib, pneumothorax, stable angina, unstable angina pectoris, atypical chest pain and costochondritis Condition is:: Improved MDM Narrative Medical decision making narrative: Patient pain obviously is more muscular in nature due to being able to be reproduced. Patient is in agreeance at this time. Labs unremarkable. We will prescribe some muscle relaxants for the patient to be used as needed. Discharge Plan Departure Patient Disposition: Home Clinical Impression: Muscle strain of anterior chest wall Instructions: DI for Atypical Chest Pain Activity Restrictions/Additional Instructions: Follow-up with PCP for continual pain in the next week or can come back to the ER. Use muscle relaxants as needed. Do not use other muscle relaxants along with the new prescription. Prescriptions: New cyclobenzaprine 10 mg tablet 10 mg PO TID PRN (Reason: muscle spasm) Qty: 21 0RF No Action prednisone 20 mg tablet 20 mg PO DAILY Qty: 14 0RF Rx Instructions: Take 2 pills for 5 days then 1 pill for 3 days then 1/2 pill for 2 days albuterol sulfate 90 mcg/actuation HFA aerosol inhaler 2 puff inhalation Q6H PRN (Reason: shortness of breath or wheezing) Qty: 6.7 0RF (DME) Aerochamber MV Spacer See Rx Instructions .ROUTE .MEDSUPPLY Qty: 10 0RF Rx Instructions: As directed methylprednisolone [Medrol (Kyle)] 4 mg tablets,dose pack See Rx Instructions .ROUTE .COMPLEX Qty: 21 0RF Rx Instructions: orally per package directions guaifenesin [Mucinex] 600 mg tablet extended release 12hr 600 mg PO BID Qty: 14 0RF ondansetron 4 mg tablet,disintegrating 4 mg PO Q8H PRN (Reason: nausea and vomiting) Qty: 10 0RF ketorolac 10 mg tablet 10 mg PO Q6H PRN (Reason: pain) Qty: 20 0RF oxycodone-acetaminophen [Percocet] 5-325 mg tablet 1 tab PO Q8H PRN (Reason: pain) Qty: 10 0RF lidocaine [Lidoderm] 5 % adhesive patch,medicated 1 patch topical DAILY PRN (Reason: pain) Qty: 15 0RF Rx Instructions: leave on most painful area for up to 12 hrs tramadol 50 mg tablet 50 mg PO DAILY PRN (Reason: pain) Qty: 14 0RF methocarbamol 500 mg tablet 500 mg PO Q8H PRN (Reason: muscle pain) Qty: 14 0RF meloxicam 15 mg tablet 15 mg PO DAILY PRN (Reason: pain) Qty: 20 0RF acetaminophen-codeine 300-15 mg tablet 1 tab PO QID PRN (Reason: pain) Qty: 14 0RF cyclobenzaprine 5 mg tablet 5 mg PO TID PRN (Reason: muscle spasm) Qty: 10 0RF Referrals: Víctor Paul MD [Primary Care Provider, [facility]] Stand Alone Forms: Patient Portal/API
== END 2024-09-13 11:42 | disposition home or self-care (01) ==
PROVIDERS: Emergency Provider Family Medicine; Family Provider Family Medicine; PCP Family Medicine
DX: S29.011A Strain of muscle and tendon of front wall of thorax, initial encounter (principal); X50.3XXA Overexertion from repetitive movements, initial encounter; Y93.89 Activity, other specified; Y99.0 Civilian activity done for income or pay
CPT/HCPCS: 71101; 99281; 99283